=== PATIENT | male | born 1945 | race American Indian/Alaskan Native ===

== ENCOUNTER 2017-12-25 20:04 | Inpatient (IN) | payer MEDICARE, OTHER ==
[2017-12-25] MEDS ORDERED: ONDANSETRON PF 4 MG/2 ML VIAL. (20:17)
[2017-12-25 20:45] LABS: BASO # 0.1 x10^3/uL (0.0-0.2); BASO % 1 % (0-3); EOS % 0 % (0-3); HEMATOCRIT 43.4 % (39.0-53.0); HEMOGLOBIN 15.1 g/dL (13.0-17.5); LYMPH # 1.1 x10^3/uL (1.0-4.8); LYMPH % 5 % (24-48); MEAN CORPUSCULAR HEMOGLOBIN 30 pg (25-35); MEAN CORPUSCULAR HGB CONC 35 g/dL (31-37); MEAN CORPUSCULAR VOLUME 86 fL (79-100); MONO # 1.4 x10^3/uL (0.0-1.1); MONO % 7 % (0-9); NEUT # 19.4 x10^3uL (1.8-7.7); NEUT % 88 % (31-73); PLATELET COUNT 501 x10^3/uL (140-400); RED BLOOD COUNT 5.08 x10^6/uL (4.30-5.70); RED CELL DISTRIBUTION WIDTH 13.5 % (11.5-14.5); WHITE BLOOD COUNT 22.1 x10^3/uL (4.0-11.0)
[2017-12-25 20:48] LABS: ADD MAN DIFF? YES
[2017-12-25] MEDS: IV NORMAL SALINE 1000ML BAG 1,000 ML IV ×2 (20:57→22:08)
[2017-12-25] MEDS: fentaNYL PF VIAL 100 MCG/2 ML VIAL IV ×4 (20:58→23:51)
[2017-12-25] MEDS: FAMOTIDINE 20 MG/2 ML VIAL IVP (20:58)
[2017-12-25] MEDS: ONDANSETRON PF 4 MG/2 ML VIAL. IV ×2 (20:58→22:43)
[2017-12-25 21:01] LABS: ALBUMIN 3.9 g/dL (3.4-5.0); ALBUMIN/GLOBULIN RATIO 0.7 (1.0-1.7); ALK PHOS 135 U/L (46-116); ALT (SGPT) 73 U/L (16-63); ANION GAP 10 (6-14); AST (SGOT) 64 U/L (15-37); BLOOD UREA NITROGEN 11 mg/dL (8-26); BUN/CREATININE RATIO 9 (6-20); CALCIUM 10.4 mg/dL (8.5-10.1); CARBON DIOXIDE 31 mmol/L (21-32); CHLORIDE 93 mmol/L (98-107); CREATININE 1.2 mg/dL (0.7-1.3); GFR 59.3; GLUCOSE 187 mg/dL (70-99); LIPASE 567 U/L (73-393); SODIUM 134 mmol/L (136-145); TOTAL BILIRUBIN 0.8 mg/dL (0.2-1.0); TOTAL PROTEIN 9.2 g/dL (6.4-8.2)
[2017-12-25 21:05] LABS: POTASSIUM 2.9 mmol/L (3.5-5.1)
[2017-12-25 21:06] LABS: TROPONINI < 0.017 ng/mL (0.000-0.055)
[2017-12-25 21:08] LABS: CKMB INDEX 1.7 % (0-4); CKMB MASS 1.8 ng/mL (0.0-3.6); CREATINE KINASE 105 U/L (39-308)
[2017-12-25 21:09] LABS: % BANDS 2 % (0-9); % LYMPHS 4 % (24-48); % MONOS 6 % (0-10); % SEGS 88 % (35-66); PLT ESTIMATE INCREASED (ADEQUATE)
[2017-12-25] MEDS ORDERED: CONTRAST GIVEN MC (22:15)
[2017-12-25] MEDS ORDERED: IOHEXOL 300 MG/ML 100ML VIAL. IV (22:30)
[2017-12-26 00:04] LABS: LACTIC ACID 2.1 mmol/L (0.4-2.0)
[2017-12-26] MEDS: POTASSIUM CL 40MEQ IN 0.9%NACL 1,000 ML IV (00:55)
[2017-12-26] MEDS ORDERED: ROCURONIUM 50 MG/5 ML VIAL. (01:05)
[2017-12-26] MEDS ORDERED: LIDOCAINE 2% PF Vial for OR 5 ML VIAL. (01:05)
[2017-12-26] MEDS ORDERED: PROPOFOL 20 ML IV (01:05)
[2017-12-26] MEDS ORDERED: SUCCINYLCHOLINE 200 MG/10 ML VIAL. (01:05)
[2017-12-26] MEDS ORDERED: DEXAMETHASONE SOD PHOS 20 MG/5 ML VIAL. (01:05)
[2017-12-26] MEDS ORDERED: fentaNYL PF VIAL 100 MCG/2 ML VIAL ×2 (01:05→03:36)
[2017-12-26] MEDS ORDERED: LIDOCAINE 1% PF 2 ML VIAL. ID (01:15)
[2017-12-26] MEDS ORDERED: ONDANSETRON PF 4 MG/2 ML VIAL. IV ×2 (01:15→04:45)
[2017-12-26] MEDS ORDERED: GLYCOPYRROLATE 1 MG/5 ML VIAL. (02:44)
[2017-12-26] MEDS ORDERED: NEOSTIGMINE METHYLSULFATE 5 MG/5 ML SYRINGE. (02:44)
[2017-12-26] MEDS ORDERED: SEVOFLURANE > 120 MINUTES. IH (03:36)
[2017-12-26] MEDS: IV RINGERS,LACTATED 1000ML 1,000 ML IV (04:26)
[2017-12-26] MEDS: PROCHLORPERAZINE 10 MG/2 ML VIAL. IV ×2 (04:27→04:43)
[2017-12-26] MEDS: fentaNYL PF VIAL 100 MCG/2 ML VIAL IV ×5 (04:28→05:14)
[2017-12-26] MEDS ORDERED: PHENOL ORAL SPRAY 177ML BOTTLE. PO (04:45)
[2017-12-26] MEDS ORDERED: diphenhydrAMINE 50 MG/ML VIAL IV (04:45)
[2017-12-26] MEDS ORDERED: 0.9 % SODIUM CHLORIDE 10 ML DISP.SYRIN. IV (04:45)
[2017-12-26] MEDS ORDERED: PNEUMOCOCCAL VAX SCREEN BY RX. MC (07:45)
[2017-12-26] MEDS ORDERED: INFLUENZA VAX SCREEN BY RX. MC (07:45)
[2017-12-26 08:17] LABS: INFLUENZA A PATIENT NEGATIVE (NEGATIVE); INFLUENZA B PATIENT NEGATIVE (NEGATIVE); OBC FLU VALID
[2017-12-26 08:49] LABS: BILIRUBIN,URINE NEGATIVE (NEG); CLARITY,URINE CLEAR; COLOR,URINE AMBER; GLUCOSE,URINE 100 mg/dL (NEG); NITRITE,URINE NEGATIVE (NEG); PROTEIN,URINE 30 mg/dL (NEG-TRACE)
[2017-12-26] MEDS: FLU VACC QS2017-18 (36MOS+)/PF 0.5 ML SYRINGE. VAX IM (09:00)
[2017-12-26 09:05] LABS: BACTERIA,URINE FEW /HPF (0-FEW); SQUAMOUS EPITHELIAL CELL,UR OCC /LPF
[2017-12-26 09:06] LABS: HYALINE CASTS, URINE FEW /HPF
[2017-12-26] MEDS: BENZOCAINE/MENTHOL LOZENGE. PO (09:28)
[2017-12-26] MEDS: POTASSIUM CL 20MEQ-0.45% NACL 1,000 ML IV (09:28)
[2017-12-26 10:54] LABS: ADD MAN DIFF? NO
[2017-12-26 11:00] LABS: BASO % 0 % (0-3); EOS % 0 % (0-3); HEMATOCRIT 42.9 % (39.0-53.0); HEMOGLOBIN 14.5 g/dL (13.0-17.5); LYMPH # 0.2 x10^3/uL (1.0-4.8); LYMPH % 1 % (24-48); MEAN CORPUSCULAR HEMOGLOBIN 29 pg (25-35); MEAN CORPUSCULAR HGB CONC 34 g/dL (31-37); MEAN CORPUSCULAR VOLUME 86 fL (79-100); MONO # 0.2 x10^3/uL (0.0-1.1); MONO % 1 % (0-9); NEUT # 18.3 x10^3uL (1.8-7.7); NEUT % 97 % (31-73); PLATELET COUNT 388 x10^3/uL (140-400); RED BLOOD COUNT 4.98 x10^6/uL (4.30-5.70); RED CELL DISTRIBUTION WIDTH 13.8 % (11.5-14.5); WHITE BLOOD COUNT 18.7 x10^3/uL (4.0-11.0)
[2017-12-26 11:08] LABS: ANION GAP 12 (6-14); BLOOD UREA NITROGEN 12 mg/dL (8-26); CARBON DIOXIDE 21 mmol/L (21-32); CHLORIDE 102 mmol/L (98-107); CREATININE 0.9 mg/dL (0.7-1.3); GFR 82.7; GLUCOSE 149 mg/dL (70-99); POTASSIUM 3.3 mmol/L (3.5-5.1); SODIUM 135 mmol/L (136-145)
[2017-12-26 11:09] LABS: CALCIUM 8.5 mg/dL (8.5-10.1)
[2017-12-26] MEDS ORDERED: POTASSIUM CHLORIDE 20MEQ 50 ML IV (11:45)
[2017-12-26 11:59] LABS: % BANDS 48 % (0-9); % LYMPHS 1 % (24-48); % METAS 1 % (0-0)
[2017-12-26 12:02] LABS: % MONOS 4 % (0-10); % SEGS 46 % (35-66); PLT ESTIMATE ADEQUATE (ADEQUATE)
[2017-12-26 12:03] LABS: OVALOCYTES FEW
[2017-12-26] MEDS: POTASSIUM CHLORIDE 10 MEQ in IV NORMAL SALINE 100ML 100 ML IV ×2 (12:14→14:54)
[2017-12-26] MEDS ORDERED: DOCUSATE SODIUM 100 MG CAPSULE. PO (13:15)
[2017-12-26 13:56] LABS: LACTIC ACID 2.2 mmol/L (0.4-2.0)
[2017-12-26] MEDS: POTASSIUM CL 20MEQ D5-0.9%NACL 1,000 ML IV ×2 (14:53→22:00)
[2017-12-26] MEDS: KETOROLAC 15 MG/ML VIAL. IV (22:39)
[2017-12-26] MEDS: FAMOTIDINE 20 MG/2 ML VIAL IVP (22:42)
[2017-12-26] MEDS: ENOXAPARIN 40 MG/0.4 ML SYRINGE. SQ (22:43)
[2017-12-27] MEDS: POTASSIUM CL 20MEQ D5-0.9%NACL 1,000 ML IV ×2 (03:16→17:13)
[2017-12-27 06:24] LABS: ADD MAN DIFF? NO
[2017-12-27 06:32] LABS: LACTIC ACID 1.5 mmol/L (0.4-2.0)
[2017-12-27 06:42] LABS: ANION GAP 3 (6-14); BLOOD UREA NITROGEN 21 mg/dL (8-26); CALCIUM 7.8 mg/dL (8.5-10.1); CARBON DIOXIDE 28 mmol/L (21-32); CHLORIDE 106 mmol/L (98-107); CREATININE 0.9 mg/dL (0.7-1.3); GFR 82.7; GLUCOSE 127 mg/dL (70-99); POTASSIUM 4.1 mmol/L (3.5-5.1); SODIUM 137 mmol/L (136-145)
[2017-12-27 06:52] LABS: BASO % 0 % (0-3); EOS % 0 % (0-3); HEMATOCRIT 37.5 % (39.0-53.0); HEMOGLOBIN 12.7 g/dL (13.0-17.5); LYMPH # 0.5 x10^3/uL (1.0-4.8); LYMPH % 3 % (24-48); MEAN CORPUSCULAR HEMOGLOBIN 29 pg (25-35); MEAN CORPUSCULAR HGB CONC 34 g/dL (31-37); MEAN CORPUSCULAR VOLUME 87 fL (79-100); MONO # 0.7 x10^3/uL (0.0-1.1); MONO % 5 % (0-9); NEUT # 14.6 x10^3uL (1.8-7.7); NEUT % 92 % (31-73); PLATELET COUNT 326 x10^3/uL (140-400); RED BLOOD COUNT 4.32 x10^6/uL (4.30-5.70); RED CELL DISTRIBUTION WIDTH 13.7 % (11.5-14.5); WHITE BLOOD COUNT 15.9 x10^3/uL (4.0-11.0)
[2017-12-27] MEDS: ENOXAPARIN 40 MG/0.4 ML SYRINGE. SQ (10:05)
[2017-12-27] MEDS: HYDROmorphone 2 MG/ML VIAL IV ×2 (14:12→21:35)
[2017-12-27] MEDS: LACTOBACILLUS RHAMNOSUS GG 1 CAPSULE. PO ×2 (15:00→21:35)
[2017-12-27] MEDS: ONDANSETRON PF 4 MG/2 ML VIAL. IV ×2 (15:26→22:37)
[2017-12-27] MEDS: KETOROLAC 15 MG/ML VIAL. IV ×2 (17:10→22:35)
[2017-12-27] MEDS: FAMOTIDINE 20 MG/2 ML VIAL IVP (21:35)
[2017-12-28] MEDS: HYDROmorphone 2 MG/ML VIAL IV ×7 (00:35→21:26)
[2017-12-28] MEDS: POTASSIUM CL 20MEQ D5-0.9%NACL 1,000 ML IV ×2 (03:35→13:37)
[2017-12-28] MEDS: LACTOBACILLUS RHAMNOSUS GG 1 CAPSULE. PO ×2 (08:39→19:54)
[2017-12-28] MEDS: ENOXAPARIN 40 MG/0.4 ML SYRINGE. SQ (09:05)
[2017-12-28] MEDS: KETOROLAC 15 MG/ML VIAL. IV ×2 (09:09→16:40)
[2017-12-28] MEDS: ONDANSETRON PF 4 MG/2 ML VIAL. IV ×2 (10:15→16:44)
[2017-12-28] MEDS: FAMOTIDINE 20 MG/2 ML VIAL IVP (21:25)
[2017-12-29] MEDS: POTASSIUM CL 20MEQ D5-0.9%NACL 1,000 ML IV ×3 (00:02→22:59)
[2017-12-29] MEDS: HYDROmorphone 2 MG/ML VIAL IV ×2 (01:25→10:07)
[2017-12-29] MEDS: hydrALAZINE 20 MG/ML VIAL. IVP (03:05)
[2017-12-29 06:02] LABS: ADD MAN DIFF? NO
[2017-12-29 06:15] LABS: BASO % 0 % (0-3); EOS % 0 % (0-3); HEMOGLOBIN 12.4 g/dL (13.0-17.5); LYMPH # 0.5 x10^3/uL (1.0-4.8); LYMPH % 11 % (24-48); MEAN CORPUSCULAR HEMOGLOBIN 29 pg (25-35); MEAN CORPUSCULAR HGB CONC 34 g/dL (31-37); MEAN CORPUSCULAR VOLUME 87 fL (79-100); MONO # 0.5 x10^3/uL (0.0-1.1); MONO % 12 % (0-9); NEUT # 3.5 x10^3uL (1.8-7.7); NEUT % 77 % (31-73); PLATELET COUNT 346 x10^3/uL (140-400); RED BLOOD COUNT 4.27 x10^6/uL (4.30-5.70); RED CELL DISTRIBUTION WIDTH 14.1 % (11.5-14.5); WHITE BLOOD COUNT 4.5 x10^3/uL (4.0-11.0)
[2017-12-29] MEDS: ONDANSETRON PF 4 MG/2 ML VIAL. IV ×2 (06:22→15:12)
[2017-12-29] MEDS: KETOROLAC 15 MG/ML VIAL. IV ×3 (06:23→22:58)
[2017-12-29 06:40] LABS: ALBUMIN 2.3 g/dL (3.4-5.0); ALBUMIN/GLOBULIN RATIO 0.5 (1.0-1.7); ALK PHOS 88 U/L (46-116); ALT (SGPT) 31 U/L (16-63); ANION GAP 10 (6-14); AST (SGOT) 24 U/L (15-37); BLOOD UREA NITROGEN 12 mg/dL (8-26); BUN/CREATININE RATIO 15 (6-20); CALCIUM 8.1 mg/dL (8.5-10.1); CARBON DIOXIDE 23 mmol/L (21-32); CHLORIDE 108 mmol/L (98-107); CREATININE 0.8 mg/dL (0.7-1.3); GFR 94.8; GLUCOSE 114 mg/dL (70-99); POTASSIUM 3.8 mmol/L (3.5-5.1); SODIUM 141 mmol/L (136-145); TOTAL BILIRUBIN 0.9 mg/dL (0.2-1.0); TOTAL PROTEIN 6.5 g/dL (6.4-8.2)
[2017-12-29] MEDS: LACTOBACILLUS RHAMNOSUS GG 1 CAPSULE. PO ×2 (09:00→21:00)
[2017-12-29] MEDS: ENOXAPARIN 40 MG/0.4 ML SYRINGE. SQ (10:01)
[2017-12-29] MEDS: PNEUMOC CONJ VACC 23-VALENT 0.5 ML VIAL. VAX IM (12:16)
[2017-12-29] MEDS: FAMOTIDINE 20 MG/2 ML VIAL IVP (21:07)
[2017-12-30 04:21] LABS: ADD MAN DIFF? NO
[2017-12-30 04:22] LABS: BASO % 0 % (0-3); EOS # 0.1 x10^3/uL (0.0-0.7); EOS % 1 % (0-3); HEMOGLOBIN 11.7 g/dL (13.0-17.5); LYMPH # 0.6 x10^3/uL (1.0-4.8); LYMPH % 10 % (24-48); MEAN CORPUSCULAR HEMOGLOBIN 29 pg (25-35); MEAN CORPUSCULAR HGB CONC 33 g/dL (31-37); MEAN CORPUSCULAR VOLUME 88 fL (79-100); MONO # 0.8 x10^3/uL (0.0-1.1); MONO % 14 % (0-9); NEUT # 4.1 x10^3uL (1.8-7.7); NEUT % 75 % (31-73); PLATELET COUNT 349 x10^3/uL (140-400); RED BLOOD COUNT 3.98 x10^6/uL (4.30-5.70); RED CELL DISTRIBUTION WIDTH 14.2 % (11.5-14.5); WHITE BLOOD COUNT 5.6 x10^3/uL (4.0-11.0)
[2017-12-30 04:46] LABS: ALBUMIN 2.1 g/dL (3.4-5.0); ALBUMIN/GLOBULIN RATIO 0.5 (1.0-1.7); ALK PHOS 98 U/L (46-116); ALT (SGPT) 30 U/L (16-63); ANION GAP 9 (6-14); AST (SGOT) 26 U/L (15-37); BLOOD UREA NITROGEN 15 mg/dL (8-26); BUN/CREATININE RATIO 17 (6-20); CALCIUM 7.6 mg/dL (8.5-10.1); CARBON DIOXIDE 23 mmol/L (21-32); CHLORIDE 111 mmol/L (98-107); CREATININE 0.9 mg/dL (0.7-1.3); GFR 82.7; GLUCOSE 117 mg/dL (70-99); POTASSIUM 3.8 mmol/L (3.5-5.1); SODIUM 143 mmol/L (136-145); TOTAL BILIRUBIN 0.6 mg/dL (0.2-1.0)
[2017-12-30] MEDS: ENOXAPARIN 40 MG/0.4 ML SYRINGE. SQ (09:47)
[2017-12-30] MEDS: KETOROLAC 15 MG/ML VIAL. IV ×2 (09:48→21:16)
[2017-12-30] MEDS: LACTOBACILLUS RHAMNOSUS GG 1 CAPSULE. PO ×2 (09:48→21:16)
[2017-12-30] MEDS: POTASSIUM CL 20MEQ D5-0.9%NACL 1,000 ML IV ×2 (12:27→16:00)
[2017-12-30] MEDS: ACETAMINOPHEN 325 MG TABLET. PO (13:50)
[2017-12-30] MEDS: LIDO:MAALOX:DONNATAL 1:1:1 15 ML SINGLE DOSE SWSW (16:20)
[2017-12-30] MEDS: FAMOTIDINE 20 MG/2 ML VIAL IVP (21:16)
[2017-12-31] MEDS: POTASSIUM CL 20MEQ D5-0.9%NACL 1,000 ML IV ×3 (04:33→20:33)
[2017-12-31] MEDS: KETOROLAC 15 MG/ML VIAL. IV ×3 (04:50→20:32)
[2017-12-31] MEDS: LACTOBACILLUS RHAMNOSUS GG 1 CAPSULE. PO ×2 (08:26→20:32)
[2017-12-31] MEDS: ENOXAPARIN 40 MG/0.4 ML SYRINGE. SQ (08:26)
[2017-12-31] MEDS: HYDROmorphone 2 MG/ML VIAL IV ×2 (08:29→17:38)
[2017-12-31] MEDS: FAMOTIDINE 20 MG/2 ML VIAL IVP (20:32)
[2018-01-01] MEDS: hydrALAZINE 20 MG/ML VIAL. IVP (00:34)
[2018-01-01 05:23] LABS: ADD MAN DIFF? NO
[2018-01-01] MEDS: HYDROcodone/APAP 5/325MG 1 TAB TABLET PO ×3 (05:27→18:03)
[2018-01-01 05:51] LABS: BASO # 0.1 x10^3/uL (0.0-0.2); BASO % 1 % (0-3); EOS # 0.1 x10^3/uL (0.0-0.7); EOS % 1 % (0-3); HEMATOCRIT 38.1 % (39.0-53.0); HEMOGLOBIN 12.9 g/dL (13.0-17.5); LYMPH # 0.8 x10^3/uL (1.0-4.8); LYMPH % 7 % (24-48); MEAN CORPUSCULAR HEMOGLOBIN 29 pg (25-35); MEAN CORPUSCULAR HGB CONC 34 g/dL (31-37); MEAN CORPUSCULAR VOLUME 86 fL (79-100); MONO # 0.6 x10^3/uL (0.0-1.1); MONO % 5 % (0-9); NEUT # 9.5 x10^3uL (1.8-7.7); NEUT % 86 % (31-73); PLATELET COUNT 369 x10^3/uL (140-400); RED BLOOD COUNT 4.43 x10^6/uL (4.30-5.70); RED CELL DISTRIBUTION WIDTH 13.8 % (11.5-14.5)
[2018-01-01 06:02] LABS: ALBUMIN 2.5 g/dL (3.4-5.0); ALBUMIN/GLOBULIN RATIO 0.7 (1.0-1.7); ALK PHOS 128 U/L (46-116); ALT (SGPT) 66 U/L (16-63); ANION GAP 10 (6-14); AST (SGOT) 51 U/L (15-37); BLOOD UREA NITROGEN 2 mg/dL (8-26); BUN/CREATININE RATIO 3 (6-20); CALCIUM 7.7 mg/dL (8.5-10.1); CARBON DIOXIDE 24 mmol/L (21-32); CHLORIDE 105 mmol/L (98-107); CREATININE 0.6 mg/dL (0.7-1.3); GFR 132.1; GLUCOSE 124 mg/dL (70-99); POTASSIUM 3.4 mmol/L (3.5-5.1); SODIUM 139 mmol/L (136-145); TOTAL BILIRUBIN 0.5 mg/dL (0.2-1.0); TOTAL PROTEIN 5.9 g/dL (6.4-8.2)
[2018-01-01] MEDS: POTASSIUM CL 20MEQ D5-0.9%NACL 1,000 ML IV ×2 (08:00→21:04)
[2018-01-01] MEDS: LACTOBACILLUS RHAMNOSUS GG 1 CAPSULE. PO ×2 (09:18→21:06)
[2018-01-01] MEDS: ENOXAPARIN 40 MG/0.4 ML SYRINGE. SQ (09:19)
[2018-01-01] MEDS: CALCIUM CARBONATE 500 MG TAB.CHEW PO ×2 (12:28→18:03)
[2018-01-01] MEDS ORDERED: POTASSIUM CHLORIDE 20MEQ 50 ML IV (15:30)
[2018-01-01] MEDS: POTASSIUM CHLORIDE 40 MEQ in IV 1/2 NORMAL SALINE 500 ML IV (16:55)
[2018-01-01] MEDS: FAMOTIDINE 20 MG/2 ML VIAL IVP (21:06)
[2018-01-02 05:06] LABS: ADD MAN DIFF? NO
[2018-01-02 05:19] LABS: BASO % 1 % (0-3); EOS # 0.1 x10^3/uL (0.0-0.7); EOS % 1 % (0-3); HEMATOCRIT 34.3 % (39.0-53.0); HEMOGLOBIN 11.6 g/dL (13.0-17.5); LYMPH # 0.9 x10^3/uL (1.0-4.8); LYMPH % 10 % (24-48); MEAN CORPUSCULAR HEMOGLOBIN 29 pg (25-35); MEAN CORPUSCULAR HGB CONC 34 g/dL (31-37); MEAN CORPUSCULAR VOLUME 86 fL (79-100); MONO # 0.8 x10^3/uL (0.0-1.1); MONO % 8 % (0-9); NEUT # 7.8 x10^3uL (1.8-7.7); NEUT % 81 % (31-73); PLATELET COUNT 386 x10^3/uL (140-400); RED CELL DISTRIBUTION WIDTH 13.8 % (11.5-14.5); WHITE BLOOD COUNT 9.7 x10^3/uL (4.0-11.0)
[2018-01-02 05:30] LABS: ANION GAP 10 (6-14); BLOOD UREA NITROGEN 4 mg/dL (8-26); CALCIUM 8.4 mg/dL (8.5-10.1); CARBON DIOXIDE 24 mmol/L (21-32); CHLORIDE 105 mmol/L (98-107); CREATININE 0.8 mg/dL (0.7-1.3); GFR 94.8; GLUCOSE 114 mg/dL (70-99); POTASSIUM 3.3 mmol/L (3.5-5.1); SODIUM 139 mmol/L (136-145)
[2018-01-02] MEDS: POTASSIUM CL 20MEQ D5-0.9%NACL 1,000 ML IV ×2 (08:11→12:52)
[2018-01-02] MEDS: LACTOBACILLUS RHAMNOSUS GG 1 CAPSULE. PO ×2 (08:12→21:12)
[2018-01-02] MEDS: ENOXAPARIN 40 MG/0.4 ML SYRINGE. SQ (08:13)
[2018-01-02] MEDS: HYDROcodone/APAP 5/325MG 1 TAB TABLET PO (08:19)
[2018-01-02] MEDS: CALCIUM CARBONATE 500 MG TAB.CHEW PO (08:20)
[2018-01-02] MEDS ORDERED: PNEUMOCOCCAL VAX SCREEN BY RX. MC (12:30)
[2018-01-02] MEDS ORDERED: INFLUENZA VAX SCREEN BY RX. MC (12:30)
[2018-01-02] MEDS: POTASSIUM CHLORIDE 40 MEQ in IV DEXTROSE 5% 1,000 ML IV (12:55)
[2018-01-02] MEDS ORDERED: FLU VACC QS2017-18 (36MOS+)/PF 0.5 ML SYRINGE. VAX IM (14:00)
[2018-01-02 18:13] LABS: C DIFF BY PCR Negative (Negative)
[2018-01-02] MEDS: FAMOTIDINE 20 MG/2 ML VIAL IVP (21:13)
[2018-01-03 05:28] LABS: BASO % 0 % (0-3); EOS # 0.2 x10^3/uL (0.0-0.7); EOS % 1 % (0-3); HEMATOCRIT 34.3 % (39.0-53.0); HEMOGLOBIN 11.7 g/dL (13.0-17.5); LYMPH % 7 % (24-48); MEAN CORPUSCULAR HEMOGLOBIN 29 pg (25-35); MEAN CORPUSCULAR HGB CONC 34 g/dL (31-37); MEAN CORPUSCULAR VOLUME 86 fL (79-100); MONO # 0.8 x10^3/uL (0.0-1.1); MONO % 6 % (0-9); NEUT # 11.5 x10^3uL (1.8-7.7); NEUT % 85 % (31-73); PLATELET COUNT 400 x10^3/uL (140-400); RED BLOOD COUNT 3.99 x10^6/uL (4.30-5.70); RED CELL DISTRIBUTION WIDTH 13.9 % (11.5-14.5); WHITE BLOOD COUNT 13.4 x10^3/uL (4.0-11.0)
[2018-01-03 05:42] LABS: ADD MAN DIFF? YES
[2018-01-03 05:57] LABS: ANION GAP 10 (6-14); BLOOD UREA NITROGEN 7 mg/dL (8-26); CALCIUM 8.3 mg/dL (8.5-10.1); CARBON DIOXIDE 25 mmol/L (21-32); CHLORIDE 101 mmol/L (98-107); CREATININE 0.7 mg/dL (0.7-1.3); GFR 110.5; GLUCOSE 112 mg/dL (70-99); POTASSIUM 3.4 mmol/L (3.5-5.1); SODIUM 136 mmol/L (136-145)
[2018-01-03] MEDS: POTASSIUM CL 20MEQ D5-0.9%NACL 1,000 ML IV ×2 (08:41→20:00)
[2018-01-03] MEDS: POTASSIUM CHLORIDE 20 MEQ TABLET.ER. PO ×2 (08:42→12:54)
[2018-01-03] MEDS: ENOXAPARIN 40 MG/0.4 ML SYRINGE. SQ (08:43)
[2018-01-03] MEDS: LACTOBACILLUS RHAMNOSUS GG 1 CAPSULE. PO ×2 (08:43→20:33)
[2018-01-03] MEDS: HYDROcodone/APAP 5/325MG 1 TAB TABLET PO ×3 (08:52→20:34)
[2018-01-03] MEDS: CALCIUM CARBONATE 500 MG TAB.CHEW PO ×2 (08:52→12:55)
[2018-01-03 10:10] LABS: % BANDS 5 % (0-9); % BASOS 1 % (0-3); % EOS 2 % (0-5); % LYMPHS 6 % (24-48); % MONOS 2 % (0-10); % SEGS 84 % (35-66); ANISOCYTOSIS SLIGHT; PLT ESTIMATE ADEQUATE (ADEQUATE)
[2018-01-03 10:11] LABS: POLYCHROMASIA SLIGHT
[2018-01-03] MEDS: FAMOTIDINE 20 MG/2 ML VIAL IVP (20:33)
[2018-01-04 04:37] LABS: ADD MAN DIFF? NO
[2018-01-04 04:46] LABS: BASO # 0.1 x10^3/uL (0.0-0.2); BASO % 1 % (0-3); EOS # 0.1 x10^3/uL (0.0-0.7); EOS % 1 % (0-3); HEMATOCRIT 35.9 % (39.0-53.0); HEMOGLOBIN 11.9 g/dL (13.0-17.5); LYMPH # 1.3 x10^3/uL (1.0-4.8); LYMPH % 10 % (24-48); MEAN CORPUSCULAR HEMOGLOBIN 29 pg (25-35); MEAN CORPUSCULAR HGB CONC 33 g/dL (31-37); MEAN CORPUSCULAR VOLUME 87 fL (79-100); MONO # 0.8 x10^3/uL (0.0-1.1); MONO % 6 % (0-9); NEUT # 10.8 x10^3uL (1.8-7.7); NEUT % 82 % (31-73); PLATELET COUNT 408 x10^3/uL (140-400); RED BLOOD COUNT 4.12 x10^6/uL (4.30-5.70); WHITE BLOOD COUNT 13.1 x10^3/uL (4.0-11.0)
[2018-01-04 05:26] LABS: ANION GAP 6 (6-14); BLOOD UREA NITROGEN 8 mg/dL (8-26); CARBON DIOXIDE 29 mmol/L (21-32); CHLORIDE 105 mmol/L (98-107); CREATININE 0.9 mg/dL (0.7-1.3); GFR 82.7; GLUCOSE 94 mg/dL (70-99); SODIUM 140 mmol/L (136-145)
[2018-01-04] MEDS: POTASSIUM CHLORIDE 20 MEQ TABLET.ER. PO (07:57)
[2018-01-04] MEDS: LACTOBACILLUS RHAMNOSUS GG 1 CAPSULE. PO (07:57)
[2018-01-04] MEDS: ENOXAPARIN 40 MG/0.4 ML SYRINGE. SQ (07:58)
== END 2018-01-04 16:00 | DRG 853 ==
LOC: 4 NORTH 12-26 01:01 → ER 20:04
PROC: 0DB80ZZ Excision of Small Intestine, Open Approach (ICD-10-PCS; principal; 2017-12-26 00:55)
PROC: 0BQT0ZZ Repair Diaphragm, Open Approach (ICD-10-PCS; 2017-12-26 00:55)
PROC: 0DH63UZ Insertion of Feeding Device into Stomach, Percutaneous Approach (ICD-10-PCS; 2017-12-26 00:55)
DX: A41.9 Sepsis, unspecified organism (principal); J96.91 Respiratory failure, unspecified with hypoxia; K56.50 Intestinal adhesions [bands], unspecified as to partial versus complete obstruction; R65.11 Systemic inflammatory response syndrome (SIRS) of non-infectious origin with acute organ dysfunction; E87.6 Hypokalemia; K44.9 Diaphragmatic hernia without obstruction or gangrene; K52.9 Noninfective gastroenteritis and colitis, unspecified; J02.9 Acute pharyngitis, unspecified; I10 Essential (primary) hypertension; D64.9 Anemia, unspecified; Z88.5 Allergy status to narcotic agent; Z90.49 Acquired absence of other specified parts of digestive tract
CPT/HCPCS: 36415; 71045; 71250; 74018; 74176; 80048; 80053; 81001; 82553; 83605; 83690; 84484; 85007; 85025; 87040; 87324; 87804; 87804-59; 88307; 90732; 93005; 97116-GP; 97162-GP; 97166-GO; 97530-GO; 97530-GP; 97535-GO; J0330; J0360; J0690; J0780; J1100; J1170; J1650; J1885; J1956; J2405; J2704; J2710; J3010; J3480; J3490; J7030; J7120; S0028

== ENCOUNTER 2018-02-12 13:13 | Emergency (ER) | payer MEDICARE, OTHER ==
[2018-02-12] MEDS: predniSONE 10 MG TABLET PO (14:23)
== END 2018-02-12 14:37 | disposition home or self-care (01) ==
LOC: ER 13:13
DX: M54.16 Radiculopathy, lumbar region (principal); M79.651 Pain in right thigh; I10 Essential (primary) hypertension; E78.00 Pure hypercholesterolemia, unspecified; Z88.5 Allergy status to narcotic agent; Z91.041 Radiographic dye allergy status
CPT/HCPCS: 99284; J7512

== ENCOUNTER 2019-02-14 03:05 | Inpatient (IN) | payer MEDICARE, OTHER ==
[~2019-02-14] VITALS: Ht 165.1 cm; Wt 57.3 kg
[2019-02-14] VITALS (23 sets, daily range): BP systolic 106–175; BP diastolic 63–106
[~2019-02-14 03:05] MED LIST: PRED20TA PO
[2019-02-14 03:36] LABS: BASE EXCESS ABG -3 mmol/L (-3-3); HCO3 ABG 21 mmol/L (21-28); PCO2 ABG 34 mmHg (35-46); PO2 ABG 84 mmHg (65-108); SAT O2 ABG 95 % (92-99)
[2019-02-14 03:36] LABS: BASO # 0.1 x10^3/uL (0.0-0.2); BASO % 1 % (0-3); EOS # 0.2 x10^3/uL (0.0-0.7); EOS % 3 % (0-3); HEMATOCRIT 40.9 % (39.0-53.0); HEMOGLOBIN 13.5 g/dL (13.0-17.5); LYMPH # 1.7 x10^3/uL (1.0-4.8); LYMPH % 25 % (24-48); MEAN CORPUSCULAR HEMOGLOBIN 30 pg (25-35); MEAN CORPUSCULAR HGB CONC 33 g/dL (31-37); MEAN CORPUSCULAR VOLUME 90 fL (79-100); MONO # 0.8 x10^3/uL (0.0-1.1); MONO % 11 % (0-9); NEUT # 4.1 x10^3uL (1.8-7.7); NEUT % 61 % (31-73); PLATELET COUNT 254 x10^3/uL (140-400); RED BLOOD COUNT 4.53 x10^6/uL (4.30-5.70); RED CELL DISTRIBUTION WIDTH 14.5 % (11.5-14.5); WHITE BLOOD COUNT 6.8 x10^3/uL (4.0-11.0)
[2019-02-14 03:57] LABS: CALCIUM 8.1 mg/dL (8.5-10.1); CREATININE 0.9 mg/dL (0.7-1.3); GFR 82.5; POTASSIUM 3.6 mmol/L (3.5-5.1)
[2019-02-14 04:03] LABS: ALBUMIN 3.2 g/dL (3.4-5.0); ALBUMIN/GLOBULIN RATIO 0.9 (1.0-1.7); TOTAL BILIRUBIN 0.5 mg/dL (0.2-1.0); TOTAL PROTEIN 6.8 g/dL (6.4-8.2)
--- NOTE | 2019-02-14 04:20 | RAD ---
EXAM: CT Head without IV contrast CLINICAL HISTORY: Altered mental status COMPARISON: None. TECHNIQUE: Routine CT of the head without contrast. Soft tissues and bone windows were reviewed. PQRS compliance statement - One or more of the following individualized dose reduction techniques were utilized for this study: 1. Automated exposure control 2. Adjustment of the mA and/or kV according to patient size 3. Use of iterative reconstruction technique FINDINGS: Nearly anechoic right extra-axial collection overlies the right frontal and parietal region measuring up to approximately 5 mm in thickness. This is favored to represent a subdural hygroma or old subdural hematoma. No definite high density component to suggest associated hemorrhage. Otherwise, no evidence of hemorrhage, mass or extra-axial fluid collection. Pereira-white differentiation is maintained with no evidence of edema. There are non-specific foci of hypodensity in the periventricular and subcortical white matter of the cerebral hemispheres may represent changes of chronic small vessel disease. There is no mass effect or shift of the intracranial structures. The ventricles and cerebral sulci are prominent for the patients stated age consistent with generalized cerebral volume loss. The cerebellum and brainstem are unremarkable. The calvarium demonstrates no evidence of fracture or focal lesion. There is normal aeration of the visualized paranasal sinuses and mastoid air cells. The visualized portions of the orbits are normal. IMPRESSION: 1. Mild right frontoparietal extra-axial collection, favored to represent subdural hygroma or other chronic collection. 2. Otherwise no evidence for acute intracranial process. Electronically signed by: Octavio Veronica MD (02/14/2019 4:16 AM) [facility]
[2019-02-14 04:23] LABS: FIO2 ABG 28
--- NOTE | 2019-02-14 04:33 | RAD ---
EXAM: CT Abdomen and Pelvis without IV contrast CLINICAL HISTORY: ABDOMINAL PAIN. COMPARISON: 12/25/2017 TECHNIQUE: Helical CT of the abdomen and pelvis without intravenous contrast. Axial, coronal and sagittal reformatted images were generated. PQRS compliance statement - One or more of the following individualized dose reduction techniques were utilized for this study: 1. Automated exposure control 2. Adjustment of the mA and/or kV according to patient size 3. Use of iterative reconstruction technique FINDINGS: Lack of intravenous contrast limits evaluation of solid organs, vasculature, and lymph nodes. Lower chest: Dependent opacities in the lower lobes and lingula likely scarring/atelectasis. Large hiatal hernia. Coronary artery calcifications are seen. Abdomen and Pelvis: No focal liver lesion. Accounting for postcholecystectomy change, no biliary ductal dilatation. Spleen is unremarkable. Pancreas is unremarkable. Adrenal glands are normal. Moderate distention of the bladder can be correlated for possible voluntary or involuntary causes of urinary retention. No focal renal lesion. No hydronephrosis or hydroureter. Moderate colonic stool content is seen. Colonic diverticulosis without evidence for acute diverticulitis. No abdominal or pelvic ascites. No abdominal or pelvic lymphadenopathy. Bones: Diffusely decreased bone mineral density. Multilevel degenerative changes of the spine are seen. Mild height loss of the L1 vertebral body new compared to 12/25/2018. IMPRESSION: 1. Colonic diverticulosis without evidence for acute diverticulitis. 2. No evidence for bowel obstruction. Large hiatal hernia. 3. Bladder is markedly distended, this can be correlated for possible voluntary or involuntary causes of urinary retention. 4. Mild height loss of the L1 vertebral body is new compared to 12/25/2017 although remains age-indeterminate. Electronically signed by: Octavio Veronica MD (02/14/2019 4:30 AM) [facility]
[2019-02-14 05:12] LABS: BILIRUBIN,URINE NEGATIVE (NEG); CLARITY,URINE CLEAR; COLOR,URINE YELLOW; NITRITE,URINE NEGATIVE (NEG); PH,URINE 5.5; PROTEIN,URINE NEGATIVE (NEG-TRACE); UROBILINOGEN,URINE 0.2 mg/dL (0.2 mg/dL)
--- NOTE | 2019-02-14 05:16 | PHYS DOC ---
Past Medical History Past Medical History: Anemia, High Cholesterol, Hypertension, Other Additional Past Medical Histor: ULCER Past Surgical History: Other Additional Past Surgical Histo: LOBECTOMY Alcohol Use: None Drug Use: None Adult General Chief Complaint Chief Complaint: SHORTNESS OF BREATH HPI HPI 73-year-old male presents with a multitude of complaints. The primary historian is the patient's daughter who lives in [place]. Apparently the patient lives alone in assisted complex called [facility]. Over the course of the last several weeks D assistant property manager has noticed that he seems very forgetful and sometimes will disappear for a couple of days. The daughter states this is very new over the course of the last couple of weeks. The daughter also states the patient has complained of some off-and-on chest pain along with progressive shortness of breath. The patient does state that he seems more short of breath when he lies flat. Patient also complains of severe abdominal pain. The daughter states when she was driving him here tonight they will go over a bump and he would complain of pain. He has not had any fever chills or sweats. He denies any nausea vomiting or diarrhea. He's had no melena or hematemesis.[] Review of Systems Review of Systems Constitutional: Denies fever or chills [] Eyes: Denies change in visual acuity, redness, or eye pain [] HENT: Denies nasal congestion or sore throat [] Respiratory: Denies cough or shortness of breath [] Cardiovascular: No additional information not addressed in HPI [] GI: Denies abdominal pain, nausea, vomiting, bloody stools or diarrhea [] : Denies dysuria or hematuria [] Musculoskeletal: Denies back pain or joint pain [] Integument: Denies rash or skin lesions [] Neurologic: Denies headache, focal weakness or sensory changes [] Endocrine: Denies polyuria or polydipsia [] All other systems were reviewed and found to be within normal limits, except as documented in this note. Allergies Allergies Allergies Coded Allergies Type Severity Reaction Last Updated Verified iodine Allergy Severe Anaphylaxis 12/26/17 Yes morphine Allergy Intermediate 12/26/17 Yes Physical Exam Physical Exam Constitutional: Frail, elderly in [id number] distress but nontoxic. [] HENT: Normocephalic, atraumatic, bilateral external ears normal, oropharynx moist, no oral exudates, nose normal, poor dentition. [] Eyes: PERRLA, EOMI, conjunctiva normal, no discharge. [] Neck: Normal range of motion, no tenderness, supple, no stridor. [] Cardiovascular:Heart rate regular rhythm, no murmur [] Lungs & Thorax: Bilateral breath sounds clear to auscultation [] Abdomen: Abdomen is soft with lower abdominal tenderness to palp involuntary guarding no rebound. [] Skin: Warm, dry, no erythema, no rash. [] Back: No tenderness, no CVA tenderness. [] Extremities: No tenderness, no cyanosis, no clubbing, ROM intact, no edema. [] Neurologic: Alert to person, normal motor function, normal sensory function, no focal deficits noted. [] Psychologic: Confused flat affect[] Current Patient Data Vital Signs Vital Signs Date Time Temp Pulse Resp B/P (MAP) Pulse Ox O2 Delivery O2 Flow Rate FiO2 02/14/19 03:15 98.2 75 20 126/73 (90) 88 Room Air 98.2 Lab Values Laboratory Tests Test 02/14/19 03:25 02/14/19 03:37 02/14/19 05:00 White Blood Count 6.8 x10^3/uL (4.0-11.0) Red Blood Count 4.53 x10^6/uL (4.30-5.70) Hemoglobin 13.5 g/dL (13.0-17.5) Hematocrit 40.9 % (39.0-53.0) Mean Corpuscular Volume 90 fL (79-100) Mean Corpuscular Hemoglobin 30 pg (25-35) Mean Corpuscular Hemoglobin Concent 33 g/dL (31-37) Red Cell Distribution Width 14.5 % (11.5-14.5) Platelet Count 254 x10^3/uL (140-400) Neutrophils (%) (Auto) 61 % (31-73) Lymphocytes (%) (Auto) 25 % (24-48) Monocytes (%) (Auto) 11 % (0-9) H Eosinophils (%) (Auto) 3 % (0-3) Basophils (%) (Auto) 1 % (0-3) Neutrophils # (Auto) 4.1 x10^3uL (1.8-7.7) Lymphocytes # (Auto) 1.7 x10^3/uL (1.0-4.8) Monocytes # (Auto) 0.8 x10^3/uL (0.0-1.1) Eosinophils # (Auto) 0.2 x10^3/uL (0.0-0.7) Basophils # (Auto) 0.1 x10^3/uL (0.0-0.2) Sodium Level 136 mmol/L (136-145) Potassium Level 3.6 mmol/L (3.5-5.1) Chloride Level 99 mmol/L (98-107) Carbon Dioxide Level 22 mmol/L (21-32) Anion Gap 15 (6-14) H Blood Urea Nitrogen 7 mg/dL (8-26) L Creatinine 0.9 mg/dL (0.7-1.3) Estimated GFR (Cockcroft-Gault) 82.5 BUN/Creatinine Ratio 8 (6-20) Glucose Level 114 mg/dL (70-99) H Calcium Level 8.1 mg/dL (8.5-10.1) L Total Bilirubin 0.5 mg/dL (0.2-1.0) Aspartate Amino Transferase (AST) 20 U/L (15-37) Alanine Aminotransferase (ALT) 17 U/L (16-63) Alkaline Phosphatase 87 U/L (46-116) Troponin I Quantitative 0.022 ng/mL (0.000-0.055) VK-Ylh-K-Type Natriuretic Peptide 1512 pg/mL (0-124) H Total Protein 6.8 g/dL (6.4-8.2) Albumin 3.2 g/dL (3.4-5.0) L Albumin/Globulin Ratio 0.9 (1.0-1.7) L Lipase 274 U/L (73-393) O2 Saturation 95 % (92-99) Arterial Blood pH 7.41 (7.35-7.45) Arterial Blood pCO2 at Patient Temp 34 mmHg (35-46) L Arterial Blood pO2 at Patient Temp 84 mmHg (65-108) Arterial Blood HCO3 21 mmol/L (21-28) Arterial Blood Base Excess -3 mmol/L (-3-3) FiO2 28 Urine Collection Type Unknown Urine Color Yellow Urine Clarity Clear Urine pH 5.5 Urine Specific Austin <=1.005 Urine Protein Negative mg/dL (NEG-TRACE) Urine Glucose (UA) Negative mg/dL (NEG) Urine Ketones (Stick) Negative mg/dL (NEG) Urine Blood Negative (NEG) Urine Nitrite Negative (NEG) Urine Bilirubin Negative (NEG) Urine Urobilinogen Dipstick 0.2 mg/dL (0.2 mg/dL) Urine Leukocyte Esterase Negative (NEG) Urine RBC Occ /HPF (0-2) Urine WBC Occ /HPF (0-4) Urine Squamous Epithelial Cells Occ /LPF Urine Bacteria 0 /HPF (0-FEW) Laboratory Tests 02/14/19 03:25 Laboratory Tests 02/14/19 03:25 EKG EKG [] Interpretation Time: EKG: Normal sinus rhythm rate of 77 left ventricular hypertrophy no obvious ischemic ST-T changes right bundle-branch block Radiology/Procedures Radiology/Procedures []PROCEDURE: CT HEAD WO CONTRAST EXAM: CT Head without IV contrast CLINICAL HISTORY: Altered mental status COMPARISON: None. TECHNIQUE: Routine CT of the head without contrast. Soft tissues and bone windows were reviewed. PQRS compliance statement - One or more of the following individualized dose reduction techniques were utilized for this study: 1. Automated exposure control 2. Adjustment of the mA and/or kV according to patient size 3. Use of iterative reconstruction technique FINDINGS: Nearly anechoic right extra-axial collection overlies the right frontal and parietal region measuring up to approximately 5 mm in thickness. This is favored to represent a subdural hygroma or old subdural hematoma. No definite high density component to suggest associated hemorrhage. Otherwise, no evidence of hemorrhage, mass or extra-axial fluid collection. Pereira-white differentiation is maintained with no evidence of edema. There are non-specific foci of hypodensity in the periventricular and subcortical white matter of the cerebral hemispheres may represent changes of chronic small vessel disease. There is no mass effect or shift of the intracranial structures. The ventricles and cerebral sulci are prominent for the patients stated age consistent with generalized cerebral volume loss. The cerebellum and brainstem are unremarkable. The calvarium demonstrates no evidence of fracture or focal lesion. There is normal aeration of the visualized paranasal sinuses and mastoid air cells. The visualized portions of the orbits are normal. IMPRESSION: 1. Mild right frontoparietal extra-axial collection, favored to represent subdural hygroma or other chronic collection. 2. Otherwise no evidence for acute intracranial process. Impressions: PROCEDURE: CT ABDOMEN PELVIS WO CONTRAST EXAM: CT Abdomen and Pelvis without IV contrast CLINICAL HISTORY: ABDOMINAL PAIN. COMPARISON: 12/25/2017 TECHNIQUE: Helical CT of the abdomen and pelvis without intravenous contrast. Axial, coronal and sagittal reformatted images were generated. PQRS compliance statement - One or more of the following individualized dose reduction techniques were utilized for this study: 1. Automated exposure control 2. Adjustment of the mA and/or kV according to patient size 3. Use of iterative reconstruction technique FINDINGS: Lack of intravenous contrast limits evaluation of solid organs, vasculature, and lymph nodes. Lower chest: Dependent opacities in the lower lobes and lingula likely scarring/atelectasis. Large hiatal hernia. Coronary artery calcifications are seen. Abdomen and Pelvis: No focal liver lesion. Accounting for postcholecystectomy change, no biliary ductal dilatation. Spleen is unremarkable. Pancreas is unremarkable. Adrenal glands are normal. Moderate distention of the bladder can be correlated for possible voluntary or involuntary causes of urinary retention. No focal renal lesion. No hydronephrosis or hydroureter. Moderate colonic stool content is seen. Colonic diverticulosis without evidence for acute diverticulitis. No abdominal or pelvic ascites. No abdominal or pelvic lymphadenopathy. Bones: Diffusely decreased bone mineral density. Multilevel degenerative changes of the spine are seen. Mild height loss of the L1 vertebral body new compared to 12/25/2018. IMPRESSION: 1. Colonic diverticulosis without evidence for acute diverticulitis. 2. No evidence for bowel obstruction. Large hiatal hernia. 3. Bladder is markedly distended, this can be correlated for possible voluntary or involuntary causes of urinary retention. 4. Mild height loss of the L1 vertebral body is new compared to 12/25/2017 although remains age-indeterminate. Course & Med Decision Making Course & Med Decision Making Pertinent Labs and Imaging studies reviewed. (See chart for details) [ED course: Evaluation reveals a 73-year-old male with acute urinary retention. We did talk to the patient about placing a Proctor catheter however ultimately he was able to produce around 500 mL of clear yellow urine. Patient did have a slightly elevated troponin as well as a BNP of 1500. I suspect he has some underlying cardiac disease. We will admit the patient and have cardiology see him.] Dragon Disclaimer Dragon Disclaimer This electronic medical record was generated, in whole or in part, using a voice recognition dictation system. Departure Departure Impression: Primary Impression: Chest pain Additional Impressions: Congestive heart failure Urinary retention Disposition: 09 ADMITTED INPATIENT Admitting Physician: Joey Mcelroy Condition: GUARDED Referrals: NO PCP (PCP) Problem Qualifiers Primary Impression: Chest pain Chest pain type: unspecified Qualified Codes: R07.9 - Chest pain, unspecified Additional Impressions: Congestive heart failure Heart failure type: unspecified Heart failure chronicity: acute Qualified Codes: I50.9 - Heart failure, unspecified RICCO GRAYSON DO Feb 14, 2019 05:16
[2019-02-14 05:21] LABS: BACTERIA,URINE 0 /HPF (0-FEW); RBC,URINE OCC /HPF (0-2); SQUAMOUS EPITHELIAL CELL,UR OCC /LPF; WBC,URINE OCC /HPF (0-4)
[2019-02-14] MEDS ORDERED: ACETAMINOPHEN 325 MG TABLET. PO PRN (05:30)
[2019-02-14] MEDS ORDERED: fentaNYL PF VIAL 100 MCG/2 ML VIAL IV PRN (05:30)
[2019-02-14] MEDS ORDERED: ONDANSETRON PF 4 MG/2 ML VIAL. IV PRN ×2 (05:30→08:00)
[2019-02-14] MEDS ORDERED: FUROSEMIDE 40 MG/4 ML VIAL. IVP ONE (05:30)
[2019-02-14] MEDS ORDERED: NITROGLYCERIN SUBLINGUAL 0.4 MG BOTTLE OF 25. SL PRN (05:30)
--- NOTE | 2019-02-14 06:30 | NUR ---
Pt was admitted to the unit from ER with c/o SOB x several weeks according to pt and daughter brando at bedside. Pt lives by himself at the [facility] in [place], [place], daughter lives in [place]. Pt used to live with daughter here in , but when daughter moved to [place] january, pt resided alone. Pt is alert to self, year, and states being in the hospital, but unclear which hospital. Pt is on RA, JAY on telemetry, LE 2+ edema with mild weakness. Pt left both sets of dentures at home, states taking no home medications, and daughter was worried about pts mentation. Daughter stating, "he seems to be more confused lately, normally he is not like this." Daughter came to in hopes of moving pt to [place] with her. She states wanting to pt to get better before making the move. Both pt and daughter poor historians, H&P completed, no meds to reconcile, call light within reach, bed in low/locked position. Will continue to monitor for status changes.
--- NOTE | 2019-02-14 06:45 | EKG ---
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
--- NOTE | 2019-02-14 08:12 | RAD ---
Chest radiograph 02/14/2019 3:34 AM INDICATION: Altered mental status COMPARISON: December 25, 2017 TECHNIQUE: Portable upright frontal view of the chest is provided. FINDINGS: The cardiomediastinal silhouette is enlarged, stable. Is persistent elevation of the left hemidiaphragm. There is colonic interposition along the right hemidiaphragm. No definite free intraperitoneal air is visualized. Bandlike densities in the infrahilar region bilaterally may reflect subsegmental atelectasis versus infiltrate. No significant pulmonary vascular congestion or pneumothorax. IMPRESSION: Increased prominence of infrahilar bandlike densities which may represent subsegmental atelectasis versus infiltrates. Electronically signed by: Ivonne Pope MD (02/14/2019 8:10 AM) [id number]
[2019-02-14] MEDS ORDERED: POTASSIUM CHLORIDE 20 MEQ TABLET.ER. PO ONE (08:15)
[2019-02-14 08:30] LABS: CHOLESTEROL/HDL RATIO 2.4
--- NOTE | 2019-02-14 08:57 | EKG ---
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
[2019-02-14] MEDS ORDERED: dilTIAZem IV PUSH 25 MG/5 ML VIAL IVP ONE (09:00)
--- NOTE | 2019-02-14 09:05 | PDOC1 ---
History and Physical Date of Admission Date of Admission DATE: 02/14/19 TIME: 08:58 Identification/Chief Complaint Chief Complaint forgetful Source Source: Caregiver, Chart review History of Present Illness History of Present Illness 83-year-old male who is living in a senior apartment, brought in by concerned daughter who actually lives in [place]. Because of forgetfulness. 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 Patient actually denies/not complaining of anything. But in ROS admits to difficulty initiating a urine or weak void. Attempted straight catheter at ER only drained 500 mL but then again patient might be dry?. Now called by RN, heart rate 150s. Stat EKG done, A. fib/flutter rhythm, I have personally reviewed. No home meds to reconcile. BNP 1500 in ER and chest x-ray maybe modest CHF changes. Patient did report orthopnea and SOA with intermittent chest pains for the past few weeks at rest. No identifiable precipitating or alleviating factors. Potassium 3.6 after Lasix and had urine output 1.5 L. Now complaining of leg cramps. Will order a stat potassium, replace potassium now. Cardizem 10 push for the A. fib new onset A. fib flutter. Cards aware of the status Past Medical History Cardiovascular: No pertinent hx Pulmonary: No pertinent hx GI: No pertinent hx ENT: No pertinent hx Renal/: No pertinent hx Endocrine: No pertinent hx Dermatology: No pertinent hx Past Surgical History Past Surgical History: Appendectomy, Cholecystectomy, Other Family History Family History: No Significant Social History Smoke: No ALCOHOL: none Drugs: None Current Problem List Problem List Problems Medical Problems: (1) Chest pain Status: Acute (2) Congestive heart failure Status: Acute (3) Urinary retention Status: Acute Current Medications Current Medications Current Medications Ondansetron HCl (Zofran) 4 mg PRN Q8HRS PRN IV NAUSEA/VOMITING; Start 02/14/19 at 05:30; Stop 02/14/19 at 07:58; Status DC Fentanyl Citrate (Fentanyl 2ml Vial) 50 mcg PRN Q4HRS PRN IV PAIN Last administered on 02/14/19at 08:13; Start 02/14/19 at 05:30; Stop 02/15/19 at 05:29 Acetaminophen (Tylenol) 650 mg PRN Q4HRS PRN PO FEVER; Start 02/14/19 at 05:30; Stop 02/15/19 at 05:29 Nitroglycerin (Nitrostat) 0.4 mg PRN Q5MIN PRN SL CHEST PAIN; Start 02/14/19 at 05:30; Stop 02/15/19 at 05:29 Furosemide (Lasix) 40 mg 1X ONCE IVP Last administered on 02/14/19at 05:41; Start 02/14/19 at 05:30; Stop 02/14/19 at 05:31; Status DC Ondansetron HCl (Zofran) 4 mg PRN Q6HRS PRN IV NAUSEA/VOMITING; Start 02/14/19 at 08:00 Potassium Chloride (Klor-Con) 40 meq 1X ONCE PO Last administered on 02/14/19at 08:40; Start 02/14/19 at 08:15; Stop 02/14/19 at 08:16; Status DC Diltiazem HCl (Cardizem Iv Push) 10 mg 1X ONCE IVP Last administered on at 08:52; Start 02/14/19 at 09:00; Stop 02/14/19 at 09:01 Active Scripts Active Prednisone 20 Mg Tablet 40 Mg PO DAILY 5 Days Allergies Allergies: Coded Allergies: iodine (Verified Allergy, Severe, Anaphylaxis, 12/26/17) morphine (Verified Allergy, Intermediate, 12/26/17) ROS Review of System Weak urine, weak stream, difficulty initiating avoid Physical Exam General: No acute distress HEENT: Atraumatic, PERRLA, EOMI Lungs: Normal air movement Heart: S1S2, no thrills, no rubs, no gallops, no murmurs, irregularly irregular Cardiovascular: S1, S2 Rectal Exam: not examined PELVIC: Nml ext genitalia Extremities: No clubbing, No cyanosis, No edema, Normal pulses, No tenderness/ swelling Skin: No rashes, No breakdown, No significant lesion Neuro: Normal gait, Normal speech, Strength at 5/5 X4 ext, Normal tone, Sensation intact, Cranial nerves 3-12 NL, Reflexes 2+ Psych/Mental Status: Mental status NL, Mood NL Vitals Vitals Vital Signs Date Time Temp Pulse Resp B/P (MAP) Pulse Ox O2 Delivery O2 Flow Rate FiO2 02/14/19 08:52 140 148/108 02/14/19 06:36 97.4 18 96 Room Air 97.4 02/14/19 05:04 2.0 Labs Labs Laboratory Tests Test 02/14/19 03:25 02/14/19 03:37 02/14/19 05:00 White Blood Count 6.8 x10^3/uL (4.0-11.0) Red Blood Count 4.53 x10^6/uL (4.30-5.70) Hemoglobin 13.5 g/dL (13.0-17.5) Hematocrit 40.9 % (39.0-53.0) Mean Corpuscular Volume 90 fL (79-100) Mean Corpuscular Hemoglobin 30 pg (25-35) Mean Corpuscular Hemoglobin Concent 33 g/dL (31-37) Red Cell Distribution Width 14.5 % (11.5-14.5) Platelet Count 254 x10^3/uL (140-400) Neutrophils (%) (Auto) 61 % (31-73) Lymphocytes (%) (Auto) 25 % (24-48) Monocytes (%) (Auto) 11 % (0-9) Eosinophils (%) (Auto) 3 % (0-3) Basophils (%) (Auto) 1 % (0-3) Neutrophils # (Auto) 4.1 x10^3uL (1.8-7.7) Lymphocytes # (Auto) 1.7 x10^3/uL (1.0-4.8) Monocytes # (Auto) 0.8 x10^3/uL (0.0-1.1) Eosinophils # (Auto) 0.2 x10^3/uL (0.0-0.7) Basophils # (Auto) 0.1 x10^3/uL (0.0-0.2) Sodium Level 136 mmol/L (136-145) Potassium Level 3.6 mmol/L (3.5-5.1) Chloride Level 99 mmol/L (98-107) Carbon Dioxide Level 22 mmol/L (21-32) Anion Gap 15 (6-14) Blood Urea Nitrogen 7 mg/dL (8-26) Creatinine 0.9 mg/dL (0.7-1.3) Estimated GFR (Cockcroft-Gault) 82.5 BUN/Creatinine Ratio 8 (6-20) Glucose Level 114 mg/dL (70-99) Calcium Level 8.1 mg/dL (8.5-10.1) Total Bilirubin 0.5 mg/dL (0.2-1.0) Aspartate Amino Transf (AST/SGOT) 20 U/L (15-37) Alanine Aminotransferase (ALT/SGPT) 17 U/L (16-63) Alkaline Phosphatase 87 U/L (46-116) Troponin I Quantitative 0.022 ng/mL (0.000-0.055) IX-Jej-P-Type Natriuretic Peptide 1512 pg/mL (0-124) Total Protein 6.8 g/dL (6.4-8.2) Albumin 3.2 g/dL (3.4-5.0) Albumin/Globulin Ratio 0.9 (1.0-1.7) Triglycerides Level 55 mg/dL (0-150) Cholesterol Level 112 mg/dL (0-200) LDL Cholesterol, Calculated 55 mg/dL (0-100) VLDL Cholesterol, Calculated 11 mg/dL (0-40) Non-HDL Cholesterol Calculated 66 mg/dL (0-129) HDL Cholesterol 46 mg/dL (40-60) Cholesterol/HDL Ratio 2.4 Lipase 274 U/L (73-393) Thyroid Stimulating Hormone (TSH) 2.800 uIU/mL (0.358-3.74) O2 Saturation 95 % (92-99) Arterial Blood pH 7.41 (7.35-7.45) Arterial Blood pCO2 at Patient Temp 34 mmHg (35-46) Arterial Blood pO2 at Patient Temp 84 mmHg (65-108) Arterial Blood HCO3 21 mmol/L (21-28) Arterial Blood Base Excess -3 mmol/L (-3-3) FiO2 28 Urine Collection Type Unknown Urine Color Yellow Urine Clarity Clear Urine pH 5.5 Urine Specific [place] <=1.005 Urine Protein Negative mg/dL (NEG-TRACE) Urine Glucose (UA) Negative mg/dL (NEG) Urine Ketones (Stick) Negative mg/dL (NEG) Urine Blood Negative (NEG) Urine Nitrite Negative (NEG) Urine Bilirubin Negative (NEG) Urine Urobilinogen Dipstick 0.2 mg/dL (0.2 mg/dL) Urine Leukocyte Esterase Negative (NEG) Urine RBC Occ /HPF (0-2) Urine WBC Occ /HPF (0-4) Urine Squamous Epithelial Cells Occ /LPF Urine Bacteria 0 /HPF (0-FEW) Laboratory Tests Test 02/14/19 03:25 02/14/19 03:37 02/14/19 05:00 White Blood Count 6.8 x10^3/uL (4.0-11.0) Red Blood Count 4.53 x10^6/uL (4.30-5.70) Hemoglobin 13.5 g/dL (13.0-17.5) Hematocrit 40.9 % (39.0-53.0) Mean Corpuscular Volume 90 fL (79-100) Mean Corpuscular Hemoglobin 30 pg (25-35) Mean Corpuscular Hemoglobin Concent 33 g/dL (31-37) Red Cell Distribution Width 14.5 % (11.5-14.5) Platelet Count 254 x10^3/uL (140-400) Neutrophils (%) (Auto) 61 % (31-73) Lymphocytes (%) (Auto) 25 % (24-48) Monocytes (%) (Auto) 11 % (0-9) Eosinophils (%) (Auto) 3 % (0-3) Basophils (%) (Auto) 1 % (0-3) Neutrophils # (Auto) 4.1 x10^3uL (1.8-7.7) Lymphocytes # (Auto) 1.7 x10^3/uL (1.0-4.8) Monocytes # (Auto) 0.8 x10^3/uL (0.0-1.1) Eosinophils # (Auto) 0.2 x10^3/uL (0.0-0.7) Basophils # (Auto) 0.1 x10^3/uL (0.0-0.2) Sodium Level 136 mmol/L (136-145) Potassium Level 3.6 mmol/L (3.5-5.1) Chloride Level 99 mmol/L (98-107) Carbon Dioxide Level 22 mmol/L (21-32) Anion Gap 15 (6-14) Blood Urea Nitrogen 7 mg/dL (8-26) Creatinine 0.9 mg/dL (0.7-1.3) Estimated GFR (Cockcroft-Gault) 82.5 BUN/Creatinine Ratio 8 (6-20) Glucose Level 114 mg/dL (70-99) Calcium Level 8.1 mg/dL (8.5-10.1) Total Bilirubin 0.5 mg/dL (0.2-1.0) Aspartate Amino Transf (AST/SGOT) 20 U/L (15-37) Alanine Aminotransferase (ALT/SGPT) 17 U/L (16-63) Alkaline Phosphatase 87 U/L (46-116) Troponin I Quantitative 0.022 ng/mL (0.000-0.055) AW-Nol-J-Type Natriuretic Peptide 1512 pg/mL (0-124) Total Protein 6.8 g/dL (6.4-8.2) Albumin 3.2 g/dL (3.4-5.0) Albumin/Globulin Ratio 0.9 (1.0-1.7) Triglycerides Level 55 mg/dL (0-150) Cholesterol Level 112 mg/dL (0-200) LDL Cholesterol, Calculated 55 mg/dL (0-100) VLDL Cholesterol, Calculated 11 mg/dL (0-40) Non-HDL Cholesterol Calculated 66 mg/dL (0-129) HDL Cholesterol 46 mg/dL (40-60) Cholesterol/HDL Ratio 2.4 Lipase 274 U/L (73-393) Thyroid Stimulating Hormone (TSH) 2.800 uIU/mL (0.358-3.74) O2 Saturation 95 % (92-99) Arterial Blood pH 7.41 (7.35-7.45) Arterial Blood pCO2 at Patient Temp 34 mmHg (35-46) Arterial Blood pO2 at Patient Temp 84 mmHg (65-108) Arterial Blood HCO3 21 mmol/L (21-28) Arterial Blood Base Excess -3 mmol/L (-3-3) FiO2 28 Urine Collection Type Unknown Urine Color Yellow Urine Clarity Clear Urine pH 5.5 Urine Specific [place] <=1.005 Urine Protein Negative mg/dL (NEG-TRACE) Urine Glucose (UA) Negative mg/dL (NEG) Urine Ketones (Stick) Negative mg/dL (NEG) Urine Blood Negative (NEG) Urine Nitrite Negative (NEG) Urine Bilirubin Negative (NEG) Urine Urobilinogen Dipstick 0.2 mg/dL (0.2 mg/dL) Urine Leukocyte Esterase Negative (NEG) Urine RBC Occ /HPF (0-2) Urine WBC Occ /HPF (0-4) Urine Squamous Epithelial Cells Occ /LPF Urine Bacteria 0 /HPF (0-FEW) VTE Prophylaxis Ordered VTE Prophylaxis Devices: Yes VTE Pharmacological Prophylaxi: Yes Assessment/Plan Assessment/Plan New Onset A. fib flutter in RVR - CHADS 3 Possible beginning dementia or versus moderate cognitive impairment Generalized weakness-lives in a senior apartment Possible hypokalemia HIGH likelihood urinary retention PLAN: admit 2 [place] Cardizem push now Depending on that we'll see if need more or drip etc. Cards consulted Dementia work up, TSH, esr, b12 Will need an echo Stat potassium now - leg cramps - 1.5 L Output after lasix Replace potassium 401-depending onset potassium we'll see if we need more PT OT bladder scan protocol FULL CODE dw CVC VILMA BARRETT MD Feb 14, 2019 09:05
[2019-02-14 09:21] LABS: CALCIUM 8.6 mg/dL (8.5-10.1); CREATININE 0.7 mg/dL (0.7-1.3); GFR 110.2; POTASSIUM 3.8 mmol/L (3.5-5.1)
--- NOTE | 2019-02-14 09:22 | PDOC2 ---
CARDIAC CONSULT DATE OF CONSULT Date of Consult DATE: 02/14/19 TIME: 09:07 REASON FOR CONSULT Reason for Consult: Chest pain REFERRING PHYSICIAN Referring Physician: Misty SOURCE Source: Chart review, Patient HISTORY OF PRESENT ILLNESS HISTORY OF PRESENT ILLNESS This is a an 83 yo male admitted for complains of SOA and decreasing mental state. He lives in [place] and daughter is wanting him to move to for closer supervision. He has been noted with forgetfulness and noted with SOA. No complains of dizziness, passing out. He does not take any routine medications. No hx of falls so far, CVA, CAD and has had stress test in [place] 2 yrs ago. No hx of arrhythmias. He has epigastric tenderness and pain with nausea currently. No fever, chills and diarrhea. He does have hx of HTN but does not take any meds. Denies any routine MSAID therapy. PAST MEDICAL HISTORY Cardiovascular: No pertinent hx Pulmonary: Asthma GI: Diverticulosis, GERD, Other (hiatal hernia) Heme/Onc: Anemia NOS PAST SURGICAL HISTORY Past Surgical History: Appendectomy, Cholecystectomy, Other (12/2017 SBO/HH with adhesion lysis, ex lap, bowel recetion and hernia reduction, G tube placement; RUL lobectomy) FAMILY HISTORY Family History: Family History Unknown SOCIAL HISTORY Smoke: No ALCOHOL: other (1 pint q3 days) Drugs: None Lives: Alone CURRENT MEDICATIONS CURRENT MEDICATIONS Current Medications Medications (Trade) Dose Ordered Sig/[place] Route PRN Reason Start Time Stop Time Status Last Admin Dose Admin Fentanyl Citrate (Fentanyl 2ml Vial) 50 mcg PRN Q4HRS PRN IV PAIN 02/14/19 05:30 02/15/19 05:29 02/14/19 08:13 Furosemide (Lasix) 40 mg 1X ONCE IVP 02/14/19 05:30 02/14/19 05:31 DC 02/14/19 05:41 Potassium Chloride (Klor-Con) 40 meq 1X ONCE PO 02/14/19 08:15 02/14/19 08:16 DC 02/14/19 08:40 Diltiazem HCl (Cardizem Iv Push) 10 mg 1X ONCE IVP 02/14/19 09:00 02/14/19 09:01 DC 02/14/19 08:52 ALLERGIES ALLERGIES: Coded Allergies: iodine (Verified Allergy, Severe, Anaphylaxis, 12/26/17) morphine (Verified Allergy, Intermediate, 12/26/17) ROS Review of System 14 point ROS evaluated with pertinent positives noted per HPI PHYSICAL EXAM General: Alert, Oriented X3, Cooperative, No acute distress HEENT: Atraumatic, Mucous membr. moist/pink Lungs: Clear to auscultation, Normal air movement Heart: Other (AFIB) Abdomen: Soft Extremities: No cyanosis, Other (2+ bilateral LE pitting edema) Skin: No breakdown, No significant lesion Neuro: Normal speech, Sensation intact Psych/Mental Status: Mental status NL, Mood NL MUSCULOSKELETAL: Osteoarthritic changes both hands VITALS VITALS Vital Signs Date Time Temp Pulse Resp B/P (MAP) Pulse Ox O2 Delivery O2 Flow Rate FiO2 02/14/19 08:52 140 148/108 02/14/19 06:36 97.4 18 96 Room Air 97.4 02/14/19 05:04 2.0 LABS Lab: Laboratory Tests Test 02/14/19 03:25 02/14/19 03:37 02/14/19 05:00 White Blood Count 6.8 x10^3/uL (4.0-11.0) Red Blood Count 4.53 x10^6/uL (4.30-5.70) Hemoglobin 13.5 g/dL (13.0-17.5) Hematocrit 40.9 % (39.0-53.0) Mean Corpuscular Volume 90 fL (79-100) Mean Corpuscular Hemoglobin 30 pg (25-35) Mean Corpuscular Hemoglobin Concent 33 g/dL (31-37) Red Cell Distribution Width 14.5 % (11.5-14.5) Platelet Count 254 x10^3/uL (140-400) Neutrophils (%) (Auto) 61 % (31-73) Lymphocytes (%) (Auto) 25 % (24-48) Monocytes (%) (Auto) 11 % (0-9) Eosinophils (%) (Auto) 3 % (0-3) Basophils (%) (Auto) 1 % (0-3) Neutrophils # (Auto) 4.1 x10^3uL (1.8-7.7) Lymphocytes # (Auto) 1.7 x10^3/uL (1.0-4.8) Monocytes # (Auto) 0.8 x10^3/uL (0.0-1.1) Eosinophils # (Auto) 0.2 x10^3/uL (0.0-0.7) Basophils # (Auto) 0.1 x10^3/uL (0.0-0.2) Sodium Level 136 mmol/L (136-145) Potassium Level 3.6 mmol/L (3.5-5.1) Chloride Level 99 mmol/L (98-107) Carbon Dioxide Level 22 mmol/L (21-32) Anion Gap 15 (6-14) Blood Urea Nitrogen 7 mg/dL (8-26) Creatinine 0.9 mg/dL (0.7-1.3) Estimated GFR (Cockcroft-Gault) 82.5 BUN/Creatinine Ratio 8 (6-20) Glucose Level 114 mg/dL (70-99) Calcium Level 8.1 mg/dL (8.5-10.1) Total Bilirubin 0.5 mg/dL (0.2-1.0) Aspartate Amino Transf (AST/SGOT) 20 U/L (15-37) Alanine Aminotransferase (ALT/SGPT) 17 U/L (16-63) Alkaline Phosphatase 87 U/L (46-116) Troponin I Quantitative 0.022 ng/mL (0.000-0.055) PM-Vuo-G-Type Natriuretic Peptide 1512 pg/mL (0-124) Total Protein 6.8 g/dL (6.4-8.2) Albumin 3.2 g/dL (3.4-5.0) Albumin/Globulin Ratio 0.9 (1.0-1.7) Triglycerides Level 55 mg/dL (0-150) Cholesterol Level 112 mg/dL (0-200) LDL Cholesterol, Calculated 55 mg/dL (0-100) VLDL Cholesterol, Calculated 11 mg/dL (0-40) Non-HDL Cholesterol Calculated 66 mg/dL (0-129) HDL Cholesterol 46 mg/dL (40-60) Cholesterol/HDL Ratio 2.4 Lipase 274 U/L (73-393) Thyroid Stimulating Hormone (TSH) 2.800 uIU/mL (0.358-3.74) O2 Saturation 95 % (92-99) Arterial Blood pH 7.41 (7.35-7.45) Arterial Blood pCO2 at Patient Temp 34 mmHg (35-46) Arterial Blood pO2 at Patient Temp 84 mmHg (65-108) Arterial Blood HCO3 21 mmol/L (21-28) Arterial Blood Base Excess -3 mmol/L (-3-3) FiO2 28 Urine Collection Type Unknown Urine Color Yellow Urine Clarity Clear Urine pH 5.5 Urine Specific [place] <=1.005 Urine Protein Negative mg/dL (NEG-TRACE) Urine Glucose (UA) Negative mg/dL (NEG) Urine Ketones (Stick) Negative mg/dL (NEG) Urine Blood Negative (NEG) Urine Nitrite Negative (NEG) Urine Bilirubin Negative (NEG) Urine Urobilinogen Dipstick 0.2 mg/dL (0.2 mg/dL) Urine Leukocyte Esterase Negative (NEG) Urine RBC Occ /HPF (0-2) Urine WBC Occ /HPF (0-4) Urine Squamous Epithelial Cells Occ /LPF Urine Bacteria 0 /HPF (0-FEW) ASSESSMENT/PLAN ASSESSMENT/PLAN 1. AFIB RVR: new finding 2. Dyspnea with mild acute diastolic CHF: likely from paroxysmal episode as above. 3. Abnormal head CT: ?Subdural hygroma 4. Possible dementia 5. LE cramping 6. Atypical CP: more Epigastric pain with nausea 7. ETOH use: 1 piont of vodka every 3 days Recommendations 1. Will need clarification with his balance status, dementia to note fall risk and also in regards to abnormal CT prior to start of any anticoagulation. OT/PT eval and treat 2. Will place on ASA for now for stroke prevention till above is clarified. 3. Bolus cardizem and start drip. Received IV lasix in ED. Dig x1. Recheck BMP and check Mg. 4. TSH. TTE. 5. Will discuss treatment plan with daughter when available. JORGE CESAR APRN Feb 14, 2019 09:22
[2019-02-14] MEDS ORDERED: DIGOXIN IV 500 MCG/2 ML AMPUL. IV ONE (09:45)
[2019-02-14] MEDS: dilTIAZem INJ 125 MG in IV DEXTROSE 5% 100ML 100 ML IV PRN ×2 (09:48→21:08)
--- NOTE | 2019-02-14 12:04 | NUR ---
Approximately 0800 entered pt's room to do assessment. Pt was complaining of leg cramps. As this RN began to assess pt, noticed heart rhythm irregular and HR in 140s. Pt appeared to be tachypneic but no complaints of chest pain. Attempted to have pt do Valsalva maneuvers with no change. Paged and spoke to primary physician regarding current status and complaints of leg cramping. Received orders for stat BMP and ECG. ECG showed pt to be in Afib RVR. Primary physician arrived on unit and gave orders for 10 mg cardizem bolus. After 30 minutes, HR slowed down slightly upon which time cardiology [employer] ATTORNEY arrived on unit. Received orders for cardizem continuous infusion and one time digoxin x1. Approximately 1000, Pt's HR now sinus and regular. Will continue to monitor.
[2019-02-14] MEDS ORDERED: hydrALAZINE 20 MG/ML VIAL. IVP PRN (13:15)
--- NOTE | 2019-02-14 13:56 | NUR ---
SS following for discharge planning. SS reviewed pt chart. Pt is from home and is currently on room air. No discharge needs noted at this time. SS will continue to follow for discharge planning.
--- NOTE | 2019-02-14 16:58 | PDOC2 ---
NEUROLOGY CONSULT Date of Admission Date of Admission DATE: 02/14/19 TIME: 16:39 Reason for Consult Reason for Consult: IMPRESSION: Metabolic encephalopathy. Right frontal and parietal hygroma, chronic fluid collection. Anticoagulant issues from Cardiology. Chest pain. SOB. AFib with RVR, new findings? CHF. Dysarthria, chronic? Forgetfulness, cognitive impairment. HTN. HLD. Alcohol use/abuse. Peripheral neuropathy in LE likely. RECOMMENDATIONS/PLAN: EEG. Lab: see orders. Patient was unable to provide Hx whether he had SDH in the past. If he had, no anticoagulant is recommended at this time. Need information form his family. Treat medical and cardiac diseases. HISTORY OF PRESENT ILLNESS This is a an 83-y-old male patient with above medical diseases was admitted due to complains of SOB, chest pain and decreasing mental status. He lives in [place] and daughter is wanting him to move to for closer supervision. He has been noted with forgetfulness and noted with SOB. He has HTN but does not take any medication. Neurology was requested for consultation due to his abnormal HCT and possible anticoagulant issues. PAST MEDICAL HISTORY Cardiovascular: No pertinent hx Pulmonary: Asthma GI: Diverticulosis, GERD, Other (hiatal hernia) Heme/Onc: Anemia NOS PAST SURGICAL HISTORY Appendectomy, Cholecystectomy, Other (12/2017 SBO/HH with adhesion lysis, ex lap , bowel resection and hernia reduction, G tube placement; RUL lobectomy). FAMILY HISTORY Unknown ALLERGIES Coded Allergies: iodine (Verified Allergy, Severe, Anaphylaxis, 12/26/17) morphine (Verified Allergy, Intermediate, 12/26/17) SOCIAL HISTORY Smoke: No ALCOHOL: 1 pint of Vodka q3 days for many years. Drugs: None Lives: Alone MEDICATIONS: Refer to [facility] REVIEW OF SYSTEMS: Constitutional: No cachexia. Head: No traumatic brain or head injury. Skin: No edema, or rash. Ear: No infection. Eyes: No vision loss or color blindness. Nose: No bleeding or purulent discharges. Hearing: Hearing decrease. Neck: No injury. Cardiac: Chest pain, HTN, HLD. Pulmonary: SOB. GI: No GI ulcer, GI bleeding. Urinary/genital: UTI. Endocrinologic: No cousin face, craniofacial dysmorphism, polydactyly. Skeletomuscular: Generalized weakness. Neurological: see HP. Psychiatric: Alcohol use/abuse. Otherwise, not [id number] review of systems. PHYSICAL EXAMINATION: General appearance is in subacute distress. HEENT: Normocephalic and nontraumatic. Eyes, nose, ears, and throat are unremarkable. Neck is supple. No lymphadenopathy. No crepitus. Cardiovascular: S1, S2, seemed irregular rate and rhythm. Pulmonary: Clear to auscultation bilaterally. Abdomen: Bowel sounds are positive. Extremities: No rash, lesions, or edema. No restriction of range of motion NEUROLOGICAL EXAMINATION: Awake. Partially oriented to time, knew place and person. PERRL. EOMI. CN: no focal findings. Muscle tone: within normal. Muscle strength: 4+ DTR: 2 Plantar reflex: Neutral response bilaterally Gait: not examined in bed. Sensory exam: no abnormal findings. No cerebellar signs elicited. F-T-N test fine. Current Medications Current Medications Current Medications Ondansetron HCl (Zofran) 4 mg PRN Q8HRS PRN IV NAUSEA/VOMITING; Start 02/14/19 at 05:30; Stop 02/14/19 at 07:58; Status DC Fentanyl Citrate (Fentanyl 2ml Vial) 50 mcg PRN Q4HRS PRN IV PAIN Last administered on 02/14/19at 08:13; Start 02/14/19 at 05:30; Stop 02/15/19 at 05:29 Acetaminophen (Tylenol) 650 mg PRN Q4HRS PRN PO FEVER; Start 02/14/19 at 05:30; Stop 02/15/19 at 05:29 Nitroglycerin (Nitrostat) 0.4 mg PRN Q5MIN PRN SL CHEST PAIN; Start 02/14/19 at 05:30; Stop 02/15/19 at 05:29 Furosemide (Lasix) 40 mg 1X ONCE IVP Last administered on 02/14/19at 05:41; Start 02/14/19 at 05:30; Stop 02/14/19 at 05:31; Status DC Ondansetron HCl (Zofran) 4 mg PRN Q6HRS PRN IV NAUSEA/VOMITING; Start 02/14/19 at 08:00 Potassium Chloride (Klor-Con) 40 meq 1X ONCE PO Last administered on 02/14/19at 08:40; Start 02/14/19 at 08:15; Stop 02/14/19 at 08:16; Status DC Diltiazem HCl (Cardizem Iv Push) 10 mg 1X ONCE IVP Last administered on at 08:52; Start 02/14/19 at 09:00; Stop 02/14/19 at 09:01; Status DC Enoxaparin Sodium (Lovenox 60mg Syringe) 60 mg 1X ONCE SQ ; Start 02/14/19 at 09 :30; Stop 02/14/19 at 09:31; Status DC Diltiazem HCl 125 mg/Dextrose 125 ml @ 5 mls/hr CONT PRN IV SEE I/O RECORD Last administered on 02/14/19at 09:48; Start 02/14/19 at 09:30 Digoxin (Lanoxin) 500 mcg 1X ONCE IV Last administered on 02/14/19at 09:45; Start 02/14/19 at 09:45; Stop 02/14/19 at 09:46; Status DC Hydralazine HCl (Apresoline Inj) 10 mg PRN Q4HRS PRN IVP ELEVATED BP, SEE COMMENTS Last administered on 02/14/19at 13:17; Start 02/14/19 at 13:15 Active Scripts Active Prednisone 20 Mg Tablet 40 Mg PO DAILY 5 Days Allergies Allergies: Allergies Coded Allergies Type Severity Reaction Last Updated Verified iodine Allergy Severe Anaphylaxis 12/26/17 Yes morphine Allergy Intermediate 12/26/17 Yes ROS Review of System The patient denies any associated fevers, chills, headache, ear pain, rhinorrhea , sore throat, stiff neck, productive cough, chest pain, shortness of breath, back or flank pain, abdominal pain, nausea, vomiting, diarrhea, constipation, dysuria, rash, numbness, weakness, tingling, incontinence, difficulty ambulating, or diaphoresis. Physical Exam Physical Exam General: Well developed, well nourished, no acute distress, well appearing HEENT: Pupils equally round and reactive to light, EOMI, no discharge, normal conjunctiva Neck: Supple, no nuchal rigidity, no JVD, trachea midline, no tenderness Cardiac: RRR, no murmurs, no gallops, no rubs Chest/Lungs: CTAB, no wheeze, no rhonchi, no crackles Abdomen: soft, non-distended, no guarding, no peritoneal signs, non-tender Back: No tenderness Extremities: no edema, pulses intact, non-tender,capillary refill <3 sec bilateral upper and lower extremities, Neuro: Alert and oriented x 4, no focal deficits, normal speech Vitals Vitals: Vital Signs Date Time Temp Pulse Resp B/P (MAP) Pulse Ox O2 Delivery O2 Flow Rate FiO2 02/14/19 16:00 80 153/91 (111) 02/14/19 14:00 97.5 18 94 Room Air 97.5 02/14/19 08:00 2.0 Labs Labs Laboratory Tests Test 02/14/19 03:25 02/14/19 03:37 02/14/19 05:00 02/14/19 08:20 White Blood Count 6.8 x10^3/uL (4.0-11.0) Red Blood Count 4.53 x10^6/uL (4.30-5.70) Hemoglobin 13.5 g/dL (13.0-17.5) Hematocrit 40.9 % (39.0-53.0) Mean Corpuscular Volume 90 fL (79-100) Mean Corpuscular Hemoglobin 30 pg (25-35) Mean Corpuscular Hemoglobin Concent 33 g/dL (31-37) Red Cell Distribution Width 14.5 % (11.5-14.5) Platelet Count 254 x10^3/uL (140-400) Neutrophils (%) (Auto) 61 % (31-73) Lymphocytes (%) (Auto) 25 % (24-48) Monocytes (%) (Auto) 11 % (0-9) Eosinophils (%) (Auto) 3 % (0-3) Basophils (%) (Auto) 1 % (0-3) Neutrophils # (Auto) 4.1 x10^3uL (1.8-7.7) Lymphocytes # (Auto) 1.7 x10^3/uL (1.0-4.8) Monocytes # (Auto) 0.8 x10^3/uL (0.0-1.1) Eosinophils # (Auto) 0.2 x10^3/uL (0.0-0.7) Basophils # (Auto) 0.1 x10^3/uL (0.0-0.2) Sodium Level 136 mmol/L (136-145) 137 mmol/L (136-145) Potassium Level 3.6 mmol/L (3.5-5.1) 3.8 mmol/L (3.5-5.1) Chloride Level 99 mmol/L (98-107) 100 mmol/L (98-107) Carbon Dioxide Level 22 mmol/L (21-32) 21 mmol/L (21-32) Anion Gap 15 (6-14) 16 (6-14) Blood Urea Nitrogen 7 mg/dL (8-26) 7 mg/dL (8-26) Creatinine 0.9 mg/dL (0.7-1.3) 0.7 mg/dL (0.7-1.3) Estimated GFR (Cockcroft-Gault) 82.5 110.2 BUN/Creatinine Ratio 8 (6-20) Glucose Level 114 mg/dL (70-99) 117 mg/dL (70-99) Calcium Level 8.1 mg/dL (8.5-10.1) 8.6 mg/dL (8.5-10.1) Total Bilirubin 0.5 mg/dL (0.2-1.0) Aspartate Amino Transf (AST/SGOT) 20 U/L (15-37) Alanine Aminotransferase (ALT/SGPT) 17 U/L (16-63) Alkaline Phosphatase 87 U/L (46-116) Troponin I Quantitative 0.022 ng/mL (0.000-0.055) < 0.017 ng/mL (0.000-0.055) OM-Sci-Y-Type Natriuretic Peptide 1512 pg/mL (0-124) Total Protein 6.8 g/dL (6.4-8.2) Albumin 3.2 g/dL (3.4-5.0) Albumin/Globulin Ratio 0.9 (1.0-1.7) Triglycerides Level 55 mg/dL (0-150) Cholesterol Level 112 mg/dL (0-200) LDL Cholesterol, Calculated 55 mg/dL (0-100) VLDL Cholesterol, Calculated 11 mg/dL (0-40) Non-HDL Cholesterol Calculated 66 mg/dL (0-129) HDL Cholesterol 46 mg/dL (40-60) Cholesterol/HDL Ratio 2.4 Lipase 274 U/L (73-393) Thyroid Stimulating Hormone (TSH) 2.800 uIU/mL (0.358-3.74) O2 Saturation 95 % (92-99) Arterial Blood pH 7.41 (7.35-7.45) Arterial Blood pCO2 at Patient Temp 34 mmHg (35-46) Arterial Blood pO2 at Patient Temp 84 mmHg (65-108) Arterial Blood HCO3 21 mmol/L (21-28) Arterial Blood Base Excess -3 mmol/L (-3-3) FiO2 28 Urine Collection Type Unknown Urine Color Yellow Urine Clarity Clear Urine pH 5.5 Urine Specific [place] <=1.005 Urine Protein Negative mg/dL (NEG-TRACE) Urine Glucose (UA) Negative mg/dL (NEG) Urine Ketones (Stick) Negative mg/dL (NEG) Urine Blood Negative (NEG) Urine Nitrite Negative (NEG) Urine Bilirubin Negative (NEG) Urine Urobilinogen Dipstick 0.2 mg/dL (0.2 mg/dL) Urine Leukocyte Esterase Negative (NEG) Urine RBC Occ /HPF (0-2) Urine WBC Occ /HPF (0-4) Urine Squamous Epithelial Cells Occ /LPF Urine Bacteria 0 /HPF (0-FEW) Erythrocyte Sedimentation Rate 5 (0-15) Magnesium Level 2.0 mg/dL (1.8-2.4) Vitamin B12 Level 390 pg/mL (247-911) Test 02/14/19 11:00 Troponin I Quantitative < 0.017 ng/mL (0.000-0.055) Laboratory Tests Test 02/14/19 03:25 02/14/19 03:37 02/14/19 05:00 02/14/19 08:20 White Blood Count 6.8 x10^3/uL (4.0-11.0) Red Blood Count 4.53 x10^6/uL (4.30-5.70) Hemoglobin 13.5 g/dL (13.0-17.5) Hematocrit 40.9 % (39.0-53.0) Mean Corpuscular Volume 90 fL (79-100) Mean Corpuscular Hemoglobin 30 pg (25-35) Mean Corpuscular Hemoglobin Concent 33 g/dL (31-37) Red Cell Distribution Width 14.5 % (11.5-14.5) Platelet Count 254 x10^3/uL (140-400) Neutrophils (%) (Auto) 61 % (31-73) Lymphocytes (%) (Auto) 25 % (24-48) Monocytes (%) (Auto) 11 % (0-9) Eosinophils (%) (Auto) 3 % (0-3) Basophils (%) (Auto) 1 % (0-3) Neutrophils # (Auto) 4.1 x10^3uL (1.8-7.7) Lymphocytes # (Auto) 1.7 x10^3/uL (1.0-4.8) Monocytes # (Auto) 0.8 x10^3/uL (0.0-1.1) Eosinophils # (Auto) 0.2 x10^3/uL (0.0-0.7) Basophils # (Auto) 0.1 x10^3/uL (0.0-0.2) Sodium Level 136 mmol/L (136-145) 137 mmol/L (136-145) Potassium Level 3.6 mmol/L (3.5-5.1) 3.8 mmol/L (3.5-5.1) Chloride Level 99 mmol/L (98-107) 100 mmol/L (98-107) Carbon Dioxide Level 22 mmol/L (21-32) 21 mmol/L (21-32) Anion Gap 15 (6-14) 16 (6-14) Blood Urea Nitrogen 7 mg/dL (8-26) 7 mg/dL (8-26) Creatinine 0.9 mg/dL (0.7-1.3) 0.7 mg/dL (0.7-1.3) Estimated GFR (Cockcroft-Gault) 82.5 110.2 BUN/Creatinine Ratio 8 (6-20) Glucose Level 114 mg/dL (70-99) 117 mg/dL (70-99) Calcium Level 8.1 mg/dL (8.5-10.1) 8.6 mg/dL (8.5-10.1) Total Bilirubin 0.5 mg/dL (0.2-1.0) Aspartate Amino Transf (AST/SGOT) 20 U/L (15-37) Alanine Aminotransferase (ALT/SGPT) 17 U/L (16-63) Alkaline Phosphatase 87 U/L (46-116) Troponin I Quantitative 0.022 ng/mL (0.000-0.055) < 0.017 ng/mL (0.000-0.055) HD-Yiq-X-Type Natriuretic Peptide 1512 pg/mL (0-124) Total Protein 6.8 g/dL (6.4-8.2) Albumin 3.2 g/dL (3.4-5.0) Albumin/Globulin Ratio 0.9 (1.0-1.7) Triglycerides Level 55 mg/dL (0-150) Cholesterol Level 112 mg/dL (0-200) LDL Cholesterol, Calculated 55 mg/dL (0-100) VLDL Cholesterol, Calculated 11 mg/dL (0-40) Non-HDL Cholesterol Calculated 66 mg/dL (0-129) HDL Cholesterol 46 mg/dL (40-60) Cholesterol/HDL Ratio 2.4 Lipase 274 U/L (73-393) Thyroid Stimulating Hormone (TSH) 2.800 uIU/mL (0.358-3.74) O2 Saturation 95 % (92-99) Arterial Blood pH 7.41 (7.35-7.45) Arterial Blood pCO2 at Patient Temp 34 mmHg (35-46) Arterial Blood pO2 at Patient Temp 84 mmHg (65-108) Arterial Blood HCO3 21 mmol/L (21-28) Arterial Blood Base Excess -3 mmol/L (-3-3) FiO2 28 Urine Collection Type Unknown Urine Color Yellow Urine Clarity Clear Urine pH 5.5 Urine Specific [place] <=1.005 Urine Protein Negative mg/dL (NEG-TRACE) Urine Glucose (UA) Negative mg/dL (NEG) Urine Ketones (Stick) Negative mg/dL (NEG) Urine Blood Negative (NEG) Urine Nitrite Negative (NEG) Urine Bilirubin Negative (NEG) Urine Urobilinogen Dipstick 0.2 mg/dL (0.2 mg/dL) Urine Leukocyte Esterase Negative (NEG) Urine RBC Occ /HPF (0-2) Urine WBC Occ /HPF (0-4) Urine Squamous Epithelial Cells Occ /LPF Urine Bacteria 0 /HPF (0-FEW) Erythrocyte Sedimentation Rate 5 (0-15) Magnesium Level 2.0 mg/dL (1.8-2.4) Vitamin B12 Level 390 pg/mL (247-911) Test 02/14/19 11:00 Troponin I Quantitative < 0.017 ng/mL (0.000-0.055) JENNY ARMSTRONG MD Feb 14, 2019 16:57
--- NOTE | 2019-02-14 17:32 | NUR ---
Entered Pt's room to give tylenol for pain in legs at approximately 1720. Pt received dinner and noticed HR on monitor was fast and irregular again. Cardizem drip increased to 15 mg/hr. Will continue to monitor.
[2019-02-14] MEDS: CYCLOBENZAPRINE 10 MG TABLET. PO PRN (20:58)
--- NOTE | 2019-02-14 23:31 | EEG ---
DATE OF SERVICE: 02/14/2019 EEG: #[id number]. OBJECTIVE: This is a 73-year-old male patient with history of confusional episodes and forgetfulness for 2 days. EEG was requested to help rule out subclinical seizure. METHODS: Twenty electrodes were applied according to the international 10-20 electrode placement system. EKG monitoring, hyperventilation, intermittent photic stimulation, monopolar and bipolar montages are routinely utilized. The record was obtained on a digital system with video monitoring. FINDINGS: 1. Background: The patient was recorded in the awake, drowsy, and sleep states. The overall background amplitude is 10-30 microvolts. A posterior dominant rhythm of 8-10 Hz is observed. 2. Abnormalities: No specific epileptiform discharge or electrographic seizure is seen. No focal or diffuse slowing. 3. Activation: Hyperventilation was performed only for 2 minutes. Intermittent photic stimulation was performed with photic driving. No specific epileptiform discharge or electrographic seizure induced by hyperventilation or intermittent photic stimulation. IMPRESSION: This EEG is a normal study for the awake, drowsy, and sleep states. No focal, lateralizing, specific epileptiform discharge or electrographic seizure is seen. JENNY ARMSTRONG MD DR: ISABEL/tala JOB#: [id number] / [id number] GINNY
[2019-02-15] VITALS (13 sets, daily range): BP systolic 106–131; BP diastolic 65–80
[2019-02-15] MEDS: dilTIAZem INJ 125 MG in IV DEXTROSE 5% 100ML 100 ML IV PRN (03:44)
[2019-02-15] MEDS: ASPIRIN ENTERIC COATED 81 MG TABLET.DR. PO SCH (08:53)
--- NOTE | 2019-02-15 09:13 | CARD ---
MR#: [id number] Date of Study: 02/15/2019 Ordering Physician: JORGE CESAR, Referring Physician: MARCIO GARCIA Tech: Amanda Esparza MARCK APPROVED REPORT EXAM: Two-dimensional and M-mode echocardiogram with Doppler and color Doppler. Other Information Quality : AverageHR: 73bpm Rhythm : Other INDICATION Chest Pain 2D DIMENSIONS RVDd2.9 (2.9-3.5cm)Left Atrium(2D)4.3 (1.6-4.0cm) IVSd1.5 (0.7-1.1cm)Aortic Root(2D)3.9 (2.0-3.7cm) LVDd3.9 (3.9-5.9cm)LVOT Diameter2.6 (1.8-2.4cm) PWd1.1 (0.7-1.1cm)LVDs2.3 (2.5-4.0cm) FS (%) 41.5 %SV47.6 ml LVEF(%)73.1 (>50%) M-Mode DIMENSIONS Left Atrium(MM)4.08 (2.5-4.0cm)Aortic Root3.50 (2.2-3.7cm) Aortic Valve AoV Peak Jacques.151.0cm/sAoV VTI18.7cm AO Peak GR.9.1mmHgLVOT VTI 13.88cm AO Mean GR.3mmHg Mitral Valve MV E Zjjsvgmf32.2cm/sMV DECEL [id number] MV A Ystrwtgj62.8cm/sE/A Ratio4.5 MV A Szynodyw03mh Pulmonary Valve PV Peak Jnnidksp10.0cm/s Tricuspid Valve TR P. Hjzfpmyq764fx/sRAP [id number] TR Peak Gr.35peBsZXGD88jdHe LEFT VENTRICLE The left ventricle is normal size. Proximal septal thickening is noted. The left ventricular systolic function is normal. The Ejection Fraction is 65-70%. There is normal LV segmental wall motion. RIGHT VENTRICLE The right ventricle is normal size. There is normal right ventricular wall thickness. The right ventr icular systolic function is normal. ATRIA The left atrium is mildly dilated. The right atrium size is normal. The interatrial septum is intact with no evidence for an atrial septal defect or patent foramen ovale as noted on 2-D or Doppler imagi ng. AORTIC VALVE The aortic valve is trileaflet. The aortic valve is mildly calcified. Doppler and Color Flow revealed no significant aortic regurgitation. There is no significant aortic valvular stenosis. MITRAL VALVE The mitral valve is thickened but opens well. There is no evidence of mitral valve prolapse. There is no mitral valve stenosis. Doppler and Color-flow revealed trace to mild mitral regurgitation. TRICUSPID VALVE The tricuspid valve is normal in structure and function. Doppler and Color Flow revealed trace tricus pid regurgitation. The PA pressure was estimated at 30 mmHg. There is no tricuspid valve prolapse or vegetation. There is no tricuspid valve stenosis. PULMONIC VALVE The pulmonic valve is not well visualized. GREAT VESSELS The aortic root is mildly enlarged. The ascending aorta is normal in size. The IVC is normal in size and collapses >50% with inspiration. PERICARDIAL EFFUSION There is no evidence of significant pericardial effusion. Critical Notification Critical Value: No <Conclusion> The left ventricular systolic function is normal. The Ejection Fraction is 65-70%. There is normal LV segmental wall motion. Trace to mild mitral regurgitation. Trace tricuspid regurgitation. The PA pressure was estimated at 30 mmHg. There is no evidence of significant pericardial effusion. Signed by : Silvino Benoit, Electronically Approved : 02/15/2019 09:13:22
--- NOTE | 2019-02-15 09:23 | PDOC ---
CARDIO Progress Notes Date and Time Date of Service 02/15/2019 Time of Evaluation 0910 Subjective Subjective: No Chest Pain, No shortness of breath, No Palpitations, Other ( still having intermittent leg cramps) Vitals Vitals Vital Signs Date Time Temp Pulse Resp B/P (MAP) Pulse Ox O2 Delivery O2 Flow Rate FiO2 02/15/19 08:53 84 116/80 02/15/19 08:00 Room Air 2.0 02/15/19 07:00 97.8 16 95 97.8 Weight Weight [ ] Input and Output Intake and Output Intake and Output 02/15/19 07:00 Intake Total 321.14 ml Output Total 2100 ml Balance -1778.86 ml Intake Oral 100 ml IV Total 221.14 ml Output Urine Total 2100 ml Laboratory Labs Laboratory Tests Test 02/14/19 11:00 Troponin I Quantitative < 0.017 ng/mL (0.000-0.055) Microbiology Micro Microbiology 02/14/19 Blood Culture - Preliminary, Resulted NO GROWTH AFTER 1 DAY Physical Exam HEENT: Neck Supple W Full Motion Chest: Symmetric LUNGS: Clear to Auscultation Heart: S1S2, irregularly irregular (AFIB) Abdomen: Soft N/T Extremities: No Edema Neurology: alert, oriented, follow commands Assessment Assessment 1. AFIB RVR: converted to SR with dig yesterday and now back in AFIB but rate controlled 2. Dyspnea with mild acute diastolic CHF: induced by above. Compensated 3. Abnormal head CT: ?Subdural hygroma, neurology w/u ongoing 4. Possible dementia 5. Atypical CP: more Epigastric pain with nausea. Better. 6. ETOH use: 1 pint of vodka every 3 days. Previous longstanding chronic ETOH per daughter promoting multiple PUD in the past and advised no anticoagulation at that time. Recommendations 1. With the above information, and high risk for falls, ASA would probably more ideal with risk outweighing the benefits in addition to noted subdural hygroma 2. Change cardizem drip to PO, still awaiting TTE and if LV dysfunction is noted then may just convert to BB. 3. Awaiting TTE and may consider for antiarrhythmic agent. 4. Outpt stress test will arrange. Discussed with staff ambulate today and note HR response JORGE CESAR APRN Feb 15, 2019 09:23
[2019-02-15 10:38] LABS: BASO % 0 % (0-3); EOS % 0 % (0-3); HEMATOCRIT 47.6 % (39.0-53.0); HEMOGLOBIN 15.6 g/dL (13.0-17.5); LYMPH # 0.9 x10^3/uL (1.0-4.8); LYMPH % 9 % (24-48); MEAN CORPUSCULAR HEMOGLOBIN 30 pg (25-35); MEAN CORPUSCULAR HGB CONC 33 g/dL (31-37); MEAN CORPUSCULAR VOLUME 91 fL (79-100); MONO # 0.7 x10^3/uL (0.0-1.1); MONO % 7 % (0-9); NEUT # 8.8 x10^3uL (1.8-7.7); NEUT % 84 % (31-73); PLATELET COUNT 267 x10^3/uL (140-400); RED BLOOD COUNT 5.21 x10^6/uL (4.30-5.70); RED CELL DISTRIBUTION WIDTH 14.2 % (11.5-14.5); WHITE BLOOD COUNT 10.5 x10^3/uL (4.0-11.0)
--- NOTE | 2019-02-15 10:50 | PDOC ---
PROGRESS NOTES Chief Complaint Chief Complaint New Onset A. fib flutter in RVR - CHADS 3 Possible beginning dementia or versus moderate cognitive impairment Generalized weakness-lives in a senior apartment in [place] urinary retention b12 deficiency PLAN: follow recommendations from cardiology Dementia work up, TSH, esr normal, b12 mildly decreased will supplement Will need an echo Stat potassium now - leg cramps - 1.5 L Output after lasix PT OT bladder scan protocol FULL CODE History of Present Illness History of Present Illness Patient with improved rate control. Currently unclear if the patient has had subdural hematomas there is report of a hygroma in having frequent falls which puts him at increased risk for adverse outcomes if he indeed starts and anticoagulation. Patient will need physical therapy evaluation to determine disposition given his debilitated state currently. No acute events reported overnight no chest pain or palpitations reported no dyspnea has been reported no loss of consciousness no new neurological deficits evident Vitals Vitals Vital Signs Date Time Temp Pulse Resp B/P (MAP) Pulse Ox O2 Delivery O2 Flow Rate FiO2 02/15/19 08:53 84 116/80 02/15/19 08:00 Room Air 2.0 02/15/19 07:00 97.8 16 95 97.8 Physical Exam General: Alert, Oriented X3, Cooperative, No acute distress Heart: Other (AFIB) Lungs: Clear Abdomen: Soft Extremities: No cyanosis, Other (2+ bilateral LE pitting edema) Skin: No breakdown, No significant lesion Labs LABS Laboratory Tests Test 02/14/19 11:00 Troponin I Quantitative < 0.017 ng/mL (0.000-0.055) Review of Systems Review of Systems Pertinent as per history of present illness otherwise 14 point review of system is negative Assessment and Plan Assessmemt and Plan Problems Medical Problems: (1) Chest pain Status: Acute (2) Congestive heart failure Status: Acute (3) Urinary retention Status: Acute Comment Review of Relevant I have reviewed the following items linda (where applicable) has been applied. Labs Laboratory Tests Test 02/14/19 03:25 02/14/19 03:37 02/14/19 05:00 02/14/19 08:20 White Blood Count 6.8 x10^3/uL (4.0-11.0) Red Blood Count 4.53 x10^6/uL (4.30-5.70) Hemoglobin 13.5 g/dL (13.0-17.5) Hematocrit 40.9 % (39.0-53.0) Mean Corpuscular Volume 90 fL (79-100) Mean Corpuscular Hemoglobin 30 pg (25-35) Mean Corpuscular Hemoglobin Concent 33 g/dL (31-37) Red Cell Distribution Width 14.5 % (11.5-14.5) Platelet Count 254 x10^3/uL (140-400) Neutrophils (%) (Auto) 61 % (31-73) Lymphocytes (%) (Auto) 25 % (24-48) Monocytes (%) (Auto) 11 % (0-9) Eosinophils (%) (Auto) 3 % (0-3) Basophils (%) (Auto) 1 % (0-3) Neutrophils # (Auto) 4.1 x10^3uL (1.8-7.7) Lymphocytes # (Auto) 1.7 x10^3/uL (1.0-4.8) Monocytes # (Auto) 0.8 x10^3/uL (0.0-1.1) Eosinophils # (Auto) 0.2 x10^3/uL (0.0-0.7) Basophils # (Auto) 0.1 x10^3/uL (0.0-0.2) Sodium Level 136 mmol/L (136-145) 137 mmol/L (136-145) Potassium Level 3.6 mmol/L (3.5-5.1) 3.8 mmol/L (3.5-5.1) Chloride Level 99 mmol/L (98-107) 100 mmol/L (98-107) Carbon Dioxide Level 22 mmol/L (21-32) 21 mmol/L (21-32) Anion Gap 15 (6-14) 16 (6-14) Blood Urea Nitrogen 7 mg/dL (8-26) 7 mg/dL (8-26) Creatinine 0.9 mg/dL (0.7-1.3) 0.7 mg/dL (0.7-1.3) Estimated GFR (Cockcroft-Gault) 82.5 110.2 BUN/Creatinine Ratio 8 (6-20) Glucose Level 114 mg/dL (70-99) 117 mg/dL (70-99) Calcium Level 8.1 mg/dL (8.5-10.1) 8.6 mg/dL (8.5-10.1) Total Bilirubin 0.5 mg/dL (0.2-1.0) Aspartate Amino Transf (AST/SGOT) 20 U/L (15-37) Alanine Aminotransferase (ALT/SGPT) 17 U/L (16-63) Alkaline Phosphatase 87 U/L (46-116) Troponin I Quantitative 0.022 ng/mL (0.000-0.055) < 0.017 ng/mL (0.000-0.055) GT-Kax-L-Type Natriuretic Peptide 1512 pg/mL (0-124) Total Protein 6.8 g/dL (6.4-8.2) Albumin 3.2 g/dL (3.4-5.0) Albumin/Globulin Ratio 0.9 (1.0-1.7) Triglycerides Level 55 mg/dL (0-150) Cholesterol Level 112 mg/dL (0-200) LDL Cholesterol, Calculated 55 mg/dL (0-100) VLDL Cholesterol, Calculated 11 mg/dL (0-40) Non-HDL Cholesterol Calculated 66 mg/dL (0-129) HDL Cholesterol 46 mg/dL (40-60) Cholesterol/HDL Ratio 2.4 Lipase 274 U/L (73-393) Thyroid Stimulating Hormone (TSH) 2.800 uIU/mL (0.358-3.74) O2 Saturation 95 % (92-99) Arterial Blood pH 7.41 (7.35-7.45) Arterial Blood pCO2 at Patient Temp 34 mmHg (35-46) Arterial Blood pO2 at Patient Temp 84 mmHg (65-108) Arterial Blood HCO3 21 mmol/L (21-28) Arterial Blood Base Excess -3 mmol/L (-3-3) FiO2 28 Urine Collection Type Unknown Urine Color Yellow Urine Clarity Clear Urine pH 5.5 Urine Specific [place] <=1.005 Urine Protein Negative mg/dL (NEG-TRACE) Urine Glucose (UA) Negative mg/dL (NEG) Urine Ketones (Stick) Negative mg/dL (NEG) Urine Blood Negative (NEG) Urine Nitrite Negative (NEG) Urine Bilirubin Negative (NEG) Urine Urobilinogen Dipstick 0.2 mg/dL (0.2 mg/dL) Urine Leukocyte Esterase Negative (NEG) Urine RBC Occ /HPF (0-2) Urine WBC Occ /HPF (0-4) Urine Squamous Epithelial Cells Occ /LPF Urine Bacteria 0 /HPF (0-FEW) Erythrocyte Sedimentation Rate 5 (0-15) Magnesium Level 2.0 mg/dL (1.8-2.4) Vitamin B12 Level 390 pg/mL (247-911) Test 02/14/19 11:00 Troponin I Quantitative < 0.017 ng/mL (0.000-0.055) Laboratory Tests Test 02/14/19 11:00 Troponin I Quantitative < 0.017 ng/mL (0.000-0.055) Microbiology 02/14/19 Blood Culture - Preliminary, Resulted NO GROWTH AFTER 1 DAY Medications Current Medications Ondansetron HCl (Zofran) 4 mg PRN Q8HRS PRN IV NAUSEA/VOMITING; Start 02/14/19 at 05:30; Stop 02/14/19 at 07:58; Status DC Fentanyl Citrate (Fentanyl 2ml Vial) 50 mcg PRN Q4HRS PRN IV PAIN Last administered on 02/14/19at 08:13; Start 02/14/19 at 05:30; Stop 02/15/19 at 05:29; Status DC Acetaminophen (Tylenol) 650 mg PRN Q4HRS PRN PO FEVER Last administered on at 17:22; Start 02/14/19 at 05:30; Stop 02/15/19 at 05:29; Status DC Nitroglycerin (Nitrostat) 0.4 mg PRN Q5MIN PRN SL CHEST PAIN; Start 02/14/19 at 05:30; Stop 02/15/19 at 05:29; Status DC Furosemide (Lasix) 40 mg 1X ONCE IVP Last administered on 02/14/19at 05:41; Start 02/14/19 at 05:30; Stop 02/14/19 at 05:31; Status DC Ondansetron HCl (Zofran) 4 mg PRN Q6HRS PRN IV NAUSEA/VOMITING; Start 02/14/19 at 08:00 Potassium Chloride (Klor-Con) 40 meq 1X ONCE PO Last administered on 02/14/19at 08:40; Start 02/14/19 at 08:15; Stop 02/14/19 at 08:16; Status DC Diltiazem HCl (Cardizem Iv Push) 10 mg 1X ONCE IVP Last administered on 08:52; Start 02/14/19 at 09:00; Stop 02/14/19 at 09:01; Status DC Enoxaparin Sodium (Lovenox 60mg Syringe) 60 mg 1X ONCE SQ ; Start 02/14/19 at 09 :30; Stop 02/14/19 at 09:31; Status DC Diltiazem HCl 125 mg/Dextrose 125 ml @ 5 mls/hr CONT PRN IV SEE I/O RECORD Last administered on 02/15/19 03:44; Start 02/14/19 at 09:30; Stop 02/15/19 at 07:40; Status DC Digoxin (Lanoxin) 500 mcg 1X ONCE IV Last administered on 02/14/19 09:45; Start 02/14/19 at 09:45; Stop 02/14/19 at 09:46; Status DC Hydralazine HCl (Apresoline Inj) 10 mg PRN Q4HRS PRN IVP ELEVATED BP, SEE COMMENTS Last administered on 02/14/19at 13:17; Start 02/14/19 at 13:15 Cyclobenzaprine HCl (Flexeril) 5 mg PRN Q12HR PRN PO MUSCLE SPASMS Last administered on 02/14/19 20:58; Start 02/14/19 at 20:45 Aspirin (Ecotrin) 81 mg DAILYWBKFT PO Last administered on 02/15/19 08:53; Start 02/15/19 at 08:00 Diltiazem HCl (Cardizem 24hr Cd) 120 mg DAILY PO Last administered on at 08:53; Start 02/15/19 at 09:00; Stop 02/15/19 at 09:03; Status DC Diltiazem HCl (Cardizem 24hr Cd) 180 mg DAILY PO ; Start 02/16/19 at 09:00 Active Scripts Active Prednisone 20 Mg Tablet 40 Mg PO DAILY 5 Days Vitals/I & O Vital Sign - Last 24 Hours 02/14/19 02/14/19 02/14/19 02/14/19 11:00 11:30 12:30 13:00 Pulse 80 67 74 72 Resp 16 18 B/P (MAP) 160/94 (116) 150/90 (110) 163/88 (113) 175/106 (129) Pulse Ox 94 O2 Delivery Room Air 02/14/19 02/14/19 02/14/19 02/14/19 13:17 13:30 14:00 14:30 Temp 97.5 97.5 Pulse 74 80 84 76 Resp 18 B/P (MAP) 175/106 162/84 (110) 140/72 (94) 141/73 (95) Pulse Ox 94 O2 Delivery Room Air 02/14/19 02/14/19 02/14/19 02/14/19 15:00 15:30 16:00 16:30 Pulse 76 86 80 80 B/P (MAP) 154/82 (106) 172/98 (122) 153/91 (111) 153/91 (111) 02/14/19 02/14/19 02/14/19 02/14/19 17:00 17:30 18:00 18:30 Pulse 74 142 92 112 B/P (MAP) 152/92 (112) 173/103 (126) 159/91 (113) 140/72 (94) 02/14/19 02/14/19 02/14/19 02/14/19 19:26 19:30 20:00 20:00 Temp 97.9 97.9 Pulse 113 76 110 Resp 20 B/P (MAP) 126/74 (91) 124/71 (88) 112/68 (83) Pulse Ox 95 O2 Delivery Room Air Room Air 02/14/19 02/14/19 02/14/19 02/14/19 20:30 21:00 21:30 22:00 Pulse 84 77 7 74 B/P (MAP) 124/70 (88) 106/63 (77) 116/77 (90) 123/80 (94) 02/15/19 02/15/19 02/15/19 02/15/19 00:00 01:00 02:00 03:00 Pulse 76 76 68 67 B/P (MAP) 131/65 (87) 113/70 (84) 114/71 (85) 111/76 (88) 02/15/19 02/15/19 02/15/19 02/15/19 03:26 04:00 05:00 06:00 Temp 97.9 97.9 Pulse 70 66 66 84 Resp 18 B/P (MAP) 122/69 (86) 111/76 (88) 120/75 (90) 117/73 (88) Pulse Ox 94 O2 Delivery Room Air 02/15/19 02/15/19 02/15/19 07:00 08:00 08:53 Temp 97.8 97.8 Pulse 73 84 Resp 16 B/P (MAP) 116/80 (92) 116/80 Pulse Ox 95 O2 Delivery Room Air Room Air O2 Flow Rate 2.0 Intake and Output 02/14/19 02/14/19 02/15/19 15:00 23:00 07:00 Intake Total 37.14 ml 284 ml Output Total 1150 ml 650 ml 300 ml Balance -1150 ml -612.86 ml -16 ml SHANTELLE SANDS MD Feb 15, 2019 10:49
[2019-02-15 10:56] LABS: CALCIUM 8.7 mg/dL (8.5-10.1)
--- NOTE | 2019-02-15 14:23 | PDOC ---
PROGRESS NOTES Assessment Assessment Metabolic encephalopathy. Right frontal and parietal hygroma, chronic fluid collection. Anticoagulant issues from Cardiology. Chest pain. SOB. AFib with RVR, new findings? CHF. Dysarthria, chronic? Forgetfulness, cognitive impairment. HTN. HLD. Alcohol use/abuse. Peripheral neuropathy in LE likely. RECOMMENDATIONS/PLAN: Patient was unable to provide Hx whether he had SDH in the past. If he had, no anticoagulant is recommended at this time. Need information form his family. Treat medical and cardiac diseases. EEG on 02/14/19: Within normal. HISTORY OF PRESENT ILLNESS This is a an 83-y-old male patient with above medical diseases was admitted due to complains of SOB, chest pain and decreasing mental status. He lives in [place] and daughter is wanting him to move to for closer supervision. He has been noted with forgetfulness and noted with SOB. He has HTN but does not take any medication. Neurology was requested for consultation due to his abnormal HCT and possible anticoagulant issues. PAST MEDICAL HISTORY Cardiovascular: No pertinent hx Pulmonary: Asthma GI: Diverticulosis, GERD, Other (hiatal hernia) Heme/Onc: Anemia NOS PAST SURGICAL HISTORY Appendectomy, Cholecystectomy, Other (12/2017 [facility]/HH with adhesion lysis, ex lap , bowel resection and hernia reduction, G tube placement; RUL lobectomy). FAMILY HISTORY Unknown ALLERGIES Coded Allergies: iodine (Verified Allergy, Severe, Anaphylaxis, 12/26/17) morphine (Verified Allergy, Intermediate, 12/26/17) SOCIAL HISTORY Smoke: No ALCOHOL: 1 pint of Vodka q3 days for many years. Drugs: None Lives: Alone MEDICATIONS: Refer to [facility] REVIEW OF SYSTEMS: Constitutional: No cachexia. Head: No traumatic brain or head injury. Skin: No edema, or rash. Ear: No infection. Eyes: No vision loss or color blindness. Nose: No bleeding or purulent discharges. Hearing: Hearing decrease. Neck: No injury. Cardiac: Chest pain, HTN, HLD. Pulmonary: SOB. GI: No GI ulcer, GI bleeding. Urinary/genital: UTI. Endocrinologic: No cousin face, craniofacial dysmorphism, polydactyly. Skeletomuscular: Generalized weakness. Neurological: see HP. Psychiatric: Alcohol use/abuse. Otherwise, not [id number] review of systems. PHYSICAL EXAMINATION: General appearance is in no acute distress. HEENT: Normocephalic and nontraumatic. Eyes, nose, ears, and throat are unremarkable. Neck is supple. No lymphadenopathy. No crepitus. Cardiovascular: S1, S2, seemed irregular rate and rhythm. Pulmonary: Clear to auscultation bilaterally. Abdomen: Bowel sounds are positive. Extremities: No rash, lesions, or edema. No restriction of range of motion NEUROLOGICAL EXAMINATION: Awake. Partially oriented to time, knew place and person. PERRL. EOMI. CN: no focal findings. Muscle tone: within normal. Muscle strength: 4+ DTR: 2 Plantar reflex: Neutral response bilaterally Gait: not examined in chair. Sensory exam: no abnormal findings. No cerebellar signs elicited. F-T-N test fine. Objective Objective Vital Signs Date Time Temp Pulse Resp B/P (MAP) Pulse Ox O2 Delivery O2 Flow Rate FiO2 02/15/19 11:00 98.1 79 16 106/67 (80) 96 Room Air 98.1 02/15/19 08:00 2.0 Intake and Output 02/15/19 06:59 Intake Total 321.14 ml Output Total 2100 ml Balance -1778.86 ml Intake Oral 100 ml IV Total 221.14 ml Output Urine Total 2100 ml Vitals Signs Vitals VS - Last 72 Hours, by Label Date Time Temp Pulse Resp B/P (MAP) Pulse Ox O2 Delivery O2 Flow Rate FiO2 02/15/19 11:00 98.1 79 16 106/67 (80) 96 Room Air 98.1 02/15/19 08:53 84 116/80 02/15/19 08:00 Room Air 2.0 02/15/19 07:00 97.8 73 16 116/80 (92) 95 Room Air 97.8 02/15/19 06:00 84 117/73 (88) 02/15/19 05:00 66 120/75 (90) 02/15/19 04:00 66 111/76 (88) 02/15/19 03:26 97.9 70 18 122/69 (86) 94 Room Air 97.9 02/15/19 03:00 67 111/76 (88) 02/15/19 02:00 68 114/71 (85) 02/15/19 01:00 76 113/70 (84) 02/15/19 00:00 76 131/65 (87) 02/14/19 22:00 74 123/80 (94) 02/14/19 21:30 7 116/77 (90) 02/14/19 21:00 77 106/63 (77) 02/14/19 20:30 84 124/70 (88) 02/14/19 20:00 Room Air 02/14/19 20:00 110 112/68 (83) 02/14/19 19:30 76 124/71 (88) 02/14/19 19:26 97.9 113 20 126/74 (91) 95 Room Air 97.9 02/14/19 18:30 112 140/72 (94) 02/14/19 18:00 92 159/91 (113) 02/14/19 17:30 142 173/103 (126) 02/14/19 17:00 74 152/92 (112) 02/14/19 16:30 80 153/91 (111) 02/14/19 16:00 80 153/91 (111) 02/14/19 15:30 86 172/98 (122) 02/14/19 15:00 76 154/82 (106) 02/14/19 14:30 76 141/73 (95) 02/14/19 14:00 97.5 84 18 140/72 (94) 94 Room Air 97.5 02/14/19 13:30 80 162/84 (110) 02/14/19 13:17 74 175/106 02/14/19 13:00 72 175/106 (129) 02/14/19 12:30 74 163/88 (113) 02/14/19 11:30 67 18 150/90 (110) 02/14/19 11:00 80 16 160/94 (116) 94 Room Air 02/14/19 09:45 123 154/95 02/14/19 08:52 140 148/108 02/14/19 08:00 Room Air 2.0 Laboratory Laboratory Laboratory Tests Test 02/15/19 10:05 White Blood Count 10.5 x10^3/uL (4.0-11.0) Red Blood Count 5.21 x10^6/uL (4.30-5.70) Hemoglobin 15.6 g/dL (13.0-17.5) Hematocrit 47.6 % (39.0-53.0) Mean Corpuscular Volume 91 fL (79-100) Mean Corpuscular Hemoglobin 30 pg (25-35) Mean Corpuscular Hemoglobin Concent 33 g/dL (31-37) Red Cell Distribution Width 14.2 % (11.5-14.5) Platelet Count 267 x10^3/uL (140-400) Neutrophils (%) (Auto) 84 % (31-73) Lymphocytes (%) (Auto) 9 % (24-48) Monocytes (%) (Auto) 7 % (0-9) Eosinophils (%) (Auto) 0 % (0-3) Basophils (%) (Auto) 0 % (0-3) Neutrophils # (Auto) 8.8 x10^3uL (1.8-7.7) Lymphocytes # (Auto) 0.9 x10^3/uL (1.0-4.8) Monocytes # (Auto) 0.7 x10^3/uL (0.0-1.1) Eosinophils # (Auto) 0.0 x10^3/uL (0.0-0.7) Basophils # (Auto) 0.0 x10^3/uL (0.0-0.2) Sodium Level 136 mmol/L (136-145) Potassium Level 4.0 mmol/L (3.5-5.1) Chloride Level 99 mmol/L (98-107) Carbon Dioxide Level 28 mmol/L (21-32) Anion Gap 9 (6-14) Blood Urea Nitrogen 11 mg/dL (8-26) Creatinine 1.0 mg/dL (0.7-1.3) Estimated GFR (Cockcroft-Gault) 73.0 Glucose Level 168 mg/dL (70-99) Calcium Level 8.7 mg/dL (8.5-10.1) Microbiology 02/14/19 Blood Culture - Preliminary, Resulted NO GROWTH AFTER 1 DAY Medication Medications Current Medications Aspirin (Ecotrin) 81 mg DAILYWBKFT PO Last administered on 02/15/19at 08:53; Start 02/15/19 at 08:00 Cyclobenzaprine HCl (Flexeril) 5 mg PRN Q12HR PRN PO MUSCLE SPASMS Last administered on 02/14/19at 20:58; Start 02/14/19 at 20:45 Diltiazem HCl (Cardizem 24hr Cd) 120 mg DAILY PO Last administered on at 08:53; Start 02/15/19 at 09:00; Stop 02/15/19 at 09:03; Status DC Diltiazem HCl (Cardizem 24hr Cd) 180 mg DAILY PO ; Start 02/16/19 at 09:00 Comment Review of Relevant I have reviewed the following items linda (where applicable) has been applied. JENNY ARMSTRONG MD Feb 15, 2019 14:23
[2019-02-15] MEDS: CYCLOBENZAPRINE 10 MG TABLET. PO PRN (21:25)
[2019-02-16 03:10] VITALS: BP 120/78
[2019-02-16 06:36] VITALS: BP 148/95
[2019-02-16] MEDS: CYCLOBENZAPRINE 10 MG TABLET. PO PRN (08:13)
[2019-02-16] MEDS: ASPIRIN ENTERIC COATED 81 MG TABLET.DR. PO SCH (08:13)
--- NOTE | 2019-02-16 10:01 | PDOC ---
CARDIO Progress Notes Date and Time Date of Service 02/16/2019 Time of Evaluation 0930 Subjective Subjective: No Chest Pain, No shortness of breath, No Palpitations Vitals Vitals Vital Signs Date Time Temp Pulse Resp B/P (MAP) Pulse Ox O2 Delivery O2 Flow Rate FiO2 02/16/19 08:13 88 148/95 02/16/19 06:36 98.0 18 99 Room Air 98.0 02/15/19 08:00 2.0 Weight Weight [ ] Input and Output Intake and Output Intake and Output 02/16/19 06:59 Intake Total 1768.78 ml Output Total 1425 ml Balance 343.78 ml Intake Oral 1720 ml IV Total 48.78 ml Output Urine Total 1425 ml # Voids 1 Laboratory Labs Laboratory Tests Test 02/15/19 10:05 White Blood Count 10.5 x10^3/uL (4.0-11.0) Red Blood Count 5.21 x10^6/uL (4.30-5.70) Hemoglobin 15.6 g/dL (13.0-17.5) Hematocrit 47.6 % (39.0-53.0) Mean Corpuscular Volume 91 fL (79-100) Mean Corpuscular Hemoglobin 30 pg (25-35) Mean Corpuscular Hemoglobin Concent 33 g/dL (31-37) Red Cell Distribution Width 14.2 % (11.5-14.5) Platelet Count 267 x10^3/uL (140-400) Neutrophils (%) (Auto) 84 % (31-73) Lymphocytes (%) (Auto) 9 % (24-48) Monocytes (%) (Auto) 7 % (0-9) Eosinophils (%) (Auto) 0 % (0-3) Basophils (%) (Auto) 0 % (0-3) Neutrophils # (Auto) 8.8 x10^3uL (1.8-7.7) Lymphocytes # (Auto) 0.9 x10^3/uL (1.0-4.8) Monocytes # (Auto) 0.7 x10^3/uL (0.0-1.1) Eosinophils # (Auto) 0.0 x10^3/uL (0.0-0.7) Basophils # (Auto) 0.0 x10^3/uL (0.0-0.2) Sodium Level 136 mmol/L (136-145) Potassium Level 4.0 mmol/L (3.5-5.1) Chloride Level 99 mmol/L (98-107) Carbon Dioxide Level 28 mmol/L (21-32) Anion Gap 9 (6-14) Blood Urea Nitrogen 11 mg/dL (8-26) Creatinine 1.0 mg/dL (0.7-1.3) Estimated GFR (Cockcroft-Gault) 73.0 Glucose Level 168 mg/dL (70-99) Calcium Level 8.7 mg/dL (8.5-10.1) Microbiology Micro Microbiology 02/14/19 Blood Culture - Preliminary, Resulted NO GROWTH AFTER 2 DAYS Physical Exam HEENT: Neck Supple W Full Motion Chest: Symmetric LUNGS: Clear to Auscultation Heart: S1S2, irregularly irregular (AFIB) Abdomen: Soft N/T Extremities: No Edema Neurology: alert, oriented, follow commands Assessment Assessment 1. AFIB RVR: converted to SR the other day. Remains in AFIB HR 90-110. EF and WM nml 2. Dyspnea with mild acute diastolic CHF: Compensated 3. Abnormal head CT: Subdural hygroma, neurology following 4. Possible dementia 5. Atypical CP: possibly GI 6. ETOH use: 1 pint of vodka every 3 days. Previous longstanding chronic ETOH per daughter promoting multiple PUD in the past and advised no anticoagulation at that time. Recommendations 1. Poor candidate for termination clerk OAC with above reasons with high fall risk. ASA for stroke prevention 2. Continue cardizem, Dig x1 250 mcg. 3. Unclear for placement will probably need SNU initally then HH, will have OT/ PT see him 4. daughter wants him to go back to [place] and if so he needs cardiology referral for outpt stress test and further treatment otherwise follow up in office in 4 weeks with [facility] 5. amiodarone is a consideration but not a usp OAC candidate. JORGE CESAR APRN Feb 16, 2019 10:01
[2019-02-16] MEDS ORDERED: DIGOXIN IV 500 MCG/2 ML AMPUL. IV ONE (10:15)
[2019-02-16 11:01] VITALS: BP 113/73
--- NOTE | 2019-02-16 13:14 | NUR ---
SS following up with discharge planning. PT recommended custodial unit. SS met with pt to discuss discharge planning and custodial unit. Pt reported that he lives with his daughter. He reported that he was at [facility] about ten years ago and if needed would go there for custodial unit. Pt requested SS send referral to [facility] and contact his daughter and son to verify that they wanted him to go to custodial unit. SS phoned and faxed referral to [facility], ; fax [phone]. SS attempted to contact pt's daughter and received a message that her number was not reachable at this time. SS contacted pt's son and discussed. Pt's son unsure if custodial unit would be necessary. He reported that he would discuss with his sister and they would notify SS of there decision.
--- NOTE | 2019-02-16 14:28 | NUR ---
SS following up with discharge planning. Pt's daughter agreeable to [facility] at discharge. Pt is accepted at [facility]. SS will await discharge orders for jail unit and will proceed accordingly. Pt's RN notified.
[2019-02-16 15:00] VITALS: BP 118/71
--- NOTE | 2019-02-16 16:49 | PDOC ---
PROGRESS NOTES Assessment Assessment Metabolic encephalopathy. Right frontal and parietal hygroma, chronic fluid collection. Anticoagulant issues from Cardiology. Chest pain. SOB. AFib with RVR, new findings? CHF. Dysarthria, chronic? Forgetfulness, cognitive impairment. HTN. HLD. Alcohol use/abuse. Peripheral neuropathy in LE likely. RECOMMENDATIONS/PLAN: Patient was unable to provide Hx whether he had SDH in the past. If he had, no anticoagulant is recommended at this time. Patient is unable to provide accurate information. Treat medical and cardiac diseases. EEG on 02/14/19: Within normal. HISTORY OF PRESENT ILLNESS This is a an 83-y-old male patient with above medical diseases was admitted due to complains of SOB, chest pain and decreasing mental status. He lives in [place] and daughter is wanting him to move to for closer supervision. He has been noted with forgetfulness and noted with SOB. He has HTN but does not take any medication. Neurology was requested for consultation due to his abnormal HCT and possible anticoagulant issues. PAST MEDICAL HISTORY Cardiovascular: No pertinent hx Pulmonary: Asthma GI: Diverticulosis, GERD, Other (hiatal hernia) Heme/Onc: Anemia NOS PAST SURGICAL HISTORY Appendectomy, Cholecystectomy, Other (12/2017 S[facility] with adhesion lysis, ex lap , bowel resection and hernia reduction, G tube placement; RUL lobectomy). FAMILY HISTORY Unknown ALLERGIES Coded Allergies: iodine (Verified Allergy, Severe, Anaphylaxis, 12/26/17) morphine (Verified Allergy, Intermediate, 12/26/17) SOCIAL HISTORY Smoke: No ALCOHOL: 1 pint of Vodka q3 days for many years. Drugs: None Lives: Alone MEDICATIONS: Refer to [facility] REVIEW OF SYSTEMS: Constitutional: No cachexia. Head: No traumatic brain or head injury. Skin: No edema, or rash. Ear: No infection. Eyes: No vision loss or color blindness. Nose: No bleeding or purulent discharges. Hearing: Hearing decrease. Neck: No injury. Cardiac: Chest pain, HTN, HLD. Pulmonary: SOB. GI: No GI ulcer, GI bleeding. Urinary/genital: UTI. Endocrinologic: No cousin face, craniofacial dysmorphism, polydactyly. Skeletomuscular: Generalized weakness. Neurological: see HP. Psychiatric: Alcohol use/abuse. Otherwise, not [id number] review of systems. PHYSICAL EXAMINATION: General appearance is in no acute distress. HEENT: Normocephalic and nontraumatic. Eyes, nose, ears, and throat are unremarkable. Neck is supple. No lymphadenopathy. No crepitus. Cardiovascular: S1, S2, seemed irregular rate and rhythm. Pulmonary: Clear to auscultation bilaterally. Abdomen: Bowel sounds are positive. Extremities: No rash, lesions, or edema. No restriction of range of motion NEUROLOGICAL EXAMINATION: Awake. Partially oriented to time, knew place and person. PERRL. EOMI. CN: no focal findings. Muscle tone: within normal. Muscle strength: 4+ DTR: 2 Plantar reflex: Neutral response bilaterally Gait: Walks with a walker. Sensory exam: no abnormal findings. No cerebellar signs elicited. F-T-N test fine. Objective Objective Vital Signs Date Time Temp Pulse Resp B/P (MAP) Pulse Ox O2 Delivery O2 Flow Rate FiO2 02/16/19 15:00 97.3 83 16 118/71 (87) 95 Room Air 97.3 02/16/19 11:01 2.0 Intake and Output 02/16/19 07:00 Intake Total 1768.78 ml Output Total 1425 ml Balance 343.78 ml Intake Oral 1720 ml IV Total 48.78 ml Output Urine Total 1425 ml # Voids 1 Vitals Signs Vitals VS - Last 72 Hours, by Label Date Time Temp Pulse Resp B/P (MAP) Pulse Ox O2 Delivery O2 Flow Rate FiO2 02/16/19 15:00 97.3 83 16 118/71 (87) 95 Room Air 97.3 02/16/19 11:01 98.0 83 113/73 (86) 99 Room Air 2.0 98.0 02/16/19 10:29 110 02/16/19 08:13 88 148/95 02/16/19 08:00 Room Air 02/16/19 06:36 98.0 88 18 148/95 (112) 99 Room Air 98.0 02/16/19 03:10 97.6 77 17 120/78 (92) 94 Room Air 97.6 02/15/19 23:17 98.1 81 18 112/75 (87) 98 Room Air 98.1 02/15/19 20:00 Room Air 02/15/19 19:10 98.1 92 18 123/66 (85) 95 Room Air 98.1 02/15/19 15:02 97.9 76 20 114/66 (82) 95 Room Air 97.9 02/15/19 11:00 98.1 79 16 106/67 (80) 96 Room Air 98.1 02/15/19 08:53 84 116/80 02/15/19 08:00 Room Air 2.0 02/15/19 07:00 97.8 73 16 116/80 (92) 95 Room Air 97.8 Laboratory Laboratory Microbiology 02/14/19 Blood Culture - Preliminary, Resulted NO GROWTH AFTER 2 DAYS Medication Medications Current Medications Amiodarone HCl (Cordarone) 200 mg DAILY PO ; Start 02/16/19 at 16:15 Digoxin (Lanoxin) 250 mcg 1X ONCE IV Last administered on 02/16/19at 10:29; Start 02/16/19 at 10:15; Stop 02/16/19 at 10:16; Status DC Diltiazem HCl (Cardizem 24hr Cd) 180 mg DAILY PO Last administered on at 08:13; Start 02/16/19 at 09:00 Comment Review of Relevant I have reviewed the following items linda (where applicable) has been applied. JENNY ARMSTRONG MD Feb 16, 2019 16:49
[2019-02-16] MEDS: AMIODARONE HCL 200 MG TABLET. PO SCH (16:51)
[2019-02-16 19:41] VITALS: BP 125/71
--- NOTE | 2019-02-16 19:49 | PDOC ---
PROGRESS NOTES Chief Complaint Chief Complaint New Onset A. fib flutter in RVR - CHADS 3 Possible beginning dementia or versus moderate cognitive impairment Generalized weakness-lives in a senior apartment in [place] urinary retention b12 deficiency PLAN: follow recommendations from cardiology Dementia work up, TSH, esr normal, b12 mildly decreased will supplement Will need an echo Stat potassium now - leg cramps - 1.5 L Output after lasix PT OT bladder scan protocol FULL CODE History of Present Illness History of Present Illness Patient with improved rate control. Currently unclear if the patient has had subdural hematomas there is report of a hygroma in having frequent falls which puts him at increased risk for adverse outcomes if he indeed starts and anticoagulation. Patient will need physical therapy evaluation to determine disposition given his debilitated state currently. Patient lives here in and his daughter lives in [place]. Seems like he does have other children in the area that can help with his care. No acute events reported overnight no chest pain or palpitations reported no dyspnea has been reported no loss of consciousness no new neurological deficits evident Vitals Vitals Vital Signs Date Time Temp Pulse Resp B/P (MAP) Pulse Ox O2 Delivery O2 Flow Rate FiO2 02/16/19 19:41 98.0 86 18 125/71 (89) 94 Room Air 98.0 02/16/19 11:01 2.0 Physical Exam General: Alert, Oriented X3, Cooperative, No acute distress Heart: Other (AFIB) Lungs: Clear Abdomen: Soft Extremities: No cyanosis, Other (2+ bilateral LE pitting edema) Skin: No breakdown, No significant lesion Review of Systems Review of Systems pertinent as per hpi otherwise 10 point review of system negative. Assessment and Plan Assessmemt and Plan Problems Medical Problems: (1) Chest pain Status: Acute (2) Congestive heart failure Status: Acute (3) Urinary retention Status: Acute Comment Review of Relevant I have reviewed the following items linda (where applicable) has been applied. Labs Laboratory Tests Test 02/15/19 10:05 White Blood Count 10.5 x10^3/uL (4.0-11.0) Red Blood Count 5.21 x10^6/uL (4.30-5.70) Hemoglobin 15.6 g/dL (13.0-17.5) Hematocrit 47.6 % (39.0-53.0) Mean Corpuscular Volume 91 fL (79-100) Mean Corpuscular Hemoglobin 30 pg (25-35) Mean Corpuscular Hemoglobin Concent 33 g/dL (31-37) Red Cell Distribution Width 14.2 % (11.5-14.5) Platelet Count 267 x10^3/uL (140-400) Neutrophils (%) (Auto) 84 % (31-73) Lymphocytes (%) (Auto) 9 % (24-48) Monocytes (%) (Auto) 7 % (0-9) Eosinophils (%) (Auto) 0 % (0-3) Basophils (%) (Auto) 0 % (0-3) Neutrophils # (Auto) 8.8 x10^3uL (1.8-7.7) Lymphocytes # (Auto) 0.9 x10^3/uL (1.0-4.8) Monocytes # (Auto) 0.7 x10^3/uL (0.0-1.1) Eosinophils # (Auto) 0.0 x10^3/uL (0.0-0.7) Basophils # (Auto) 0.0 x10^3/uL (0.0-0.2) Sodium Level 136 mmol/L (136-145) Potassium Level 4.0 mmol/L (3.5-5.1) Chloride Level 99 mmol/L (98-107) Carbon Dioxide Level 28 mmol/L (21-32) Anion Gap 9 (6-14) Blood Urea Nitrogen 11 mg/dL (8-26) Creatinine 1.0 mg/dL (0.7-1.3) Estimated GFR (Cockcroft-Gault) 73.0 Glucose Level 168 mg/dL (70-99) Calcium Level 8.7 mg/dL (8.5-10.1) Microbiology 02/14/19 Blood Culture - Preliminary, Resulted NO GROWTH AFTER 2 DAYS Medications Current Medications Ondansetron HCl (Zofran) 4 mg PRN Q8HRS PRN IV NAUSEA/VOMITING; Start 02/14/19 at 05:30; Stop 02/14/19 at 07:58; Status DC Fentanyl Citrate (Fentanyl 2ml Vial) 50 mcg PRN Q4HRS PRN IV PAIN Last administered on 02/14/19at 08:13; Start 02/14/19 at 05:30; Stop 02/15/19 at 05:29; Status DC Acetaminophen (Tylenol) 650 mg PRN Q4HRS PRN PO FEVER Last administered on at 17:22; Start 02/14/19 at 05:30; Stop 02/15/19 at 05:29; Status DC Nitroglycerin (Nitrostat) 0.4 mg PRN Q5MIN PRN SL CHEST PAIN; Start 02/14/19 at 05:30; Stop 02/15/19 at 05:29; Status DC Furosemide (Lasix) 40 mg 1X ONCE IVP Last administered on 02/14/19at 05:41; Start 02/14/19 at 05:30; Stop 02/14/19 at 05:31; Status DC Ondansetron HCl (Zofran) 4 mg PRN Q6HRS PRN IV NAUSEA/VOMITING; Start 02/14/19 at 08:00 Potassium Chloride (Klor-Con) 40 meq 1X ONCE PO Last administered on 02/14/19at 08:40; Start 02/14/19 at 08:15; Stop 02/14/19 at 08:16; Status DC Diltiazem HCl (Cardizem Iv Push) 10 mg 1X ONCE IVP Last administered on at 08:52; Start 02/14/19 at 09:00; Stop 02/14/19 at 09:01; Status DC Enoxaparin Sodium (Lovenox 60mg Syringe) 60 mg 1X ONCE SQ ; Start 02/14/19 at 09 :30; Stop 02/14/19 at 09:31; Status DC Diltiazem HCl 125 mg/Dextrose 125 ml @ 5 mls/hr CONT PRN IV SEE I/O RECORD Last administered on 02/15/19at 03:44; Start 02/14/19 at 09:30; Stop 02/15/19 at 07:40; Status DC Digoxin (Lanoxin) 500 mcg 1X ONCE IV Last administered on 02/14/19at 09:45; Start 02/14/19 at 09:45; Stop 02/14/19 at 09:46; Status DC Hydralazine HCl (Apresoline Inj) 10 mg PRN Q4HRS PRN IVP ELEVATED BP, SEE COMMENTS Last administered on 02/14/19at 13:17; Start 02/14/19 at 13:15 Cyclobenzaprine HCl (Flexeril) 5 mg PRN Q12HR PRN PO MUSCLE SPASMS Last administered on 02/16/19 08:13; Start 02/14/19 at 20:45 Aspirin (Ecotrin) 81 mg DAILYWBKFT PO Last administered on 02/16/19 08:13; Start 02/15/19 at 08:00 Diltiazem HCl (Cardizem 24hr Cd) 120 mg DAILY PO Last administered on 08:53; Start 02/15/19 at 09:00; Stop 02/15/19 at 09:03; Status DC Diltiazem HCl (Cardizem 24hr Cd) 180 mg DAILY PO Last administered on 08:13; Start 02/16/19 at 09:00 Digoxin (Lanoxin) 250 mcg 1X ONCE IV Last administered on 02/16/19 10:29; Start 02/16/19 at 10:15; Stop 02/16/19 at 10:16; Status DC Amiodarone HCl (Cordarone) 200 mg DAILY PO Last administered on 02/16/19 16:51 ; Start 02/16/19 at 16:15 Active Scripts Active Prednisone 20 Mg Tablet 40 Mg PO DAILY 5 Days Vitals/I & O Vital Sign - Last 24 Hours 02/15/19 02/15/19 02/16/19 02/16/19 20:00 23:17 03:10 06:36 Temp 98.1 97.6 98.0 98.1 97.6 98.0 Pulse 81 77 88 Resp 18 17 18 B/P (MAP) 112/75 (87) 120/78 (92) 148/95 (112) Pulse Ox 98 94 99 O2 Delivery Room Air Room Air Room Air Room Air 02/16/19 02/16/19 02/16/19 02/16/19 08:00 08:13 10:29 11:01 Temp 98.0 98.0 Pulse 88 110 83 B/P (MAP) 148/95 113/73 (86) Pulse Ox 99 O2 Delivery Room Air Room Air O2 Flow Rate 2.0 02/16/19 02/16/19 02/16/19 15:00 16:51 19:41 Temp 97.3 98.0 97.3 98.0 Pulse 83 83 86 Resp 16 18 B/P (MAP) 118/71 (87) 118/71 125/71 (89) Pulse Ox 95 94 O2 Delivery Room Air Room Air Intake and Output 02/15/19 02/15/19 02/16/19 15:00 23:00 07:00 Intake Total 528.78 ml 1080 ml 160 ml Output Total 200 ml 1225 ml Balance 328.78 ml -145 ml 160 ml SHANTELLE SANDS MD Feb 16, 2019 19:49
[2019-02-16 22:30] VITALS: BP 113/75
[2019-02-17 03:17] VITALS: BP 138/90
[2019-02-17 07:00] VITALS: BP 125/72
--- NOTE | 2019-02-17 08:37 | PDOC ---
PROGRESS NOTES Chief Complaint Chief Complaint New Onset A. fib flutter in RVR - CHADS 3 Possible beginning dementia or versus moderate cognitive impairment Generalized weakness-lives in a senior apartment in [place] urinary retention b12 deficiency PLAN: follow recommendations from cardiology Dementia work up, TSH, esr normal, b12 mildly decreased will supplement Will need an echo Stat potassium now - leg cramps - 1.5 L Output after lasix PT OT bladder scan protocol FULL CODE History of Present Illness History of Present Illness Mr Gonzalez is a 73yo M w/ PMHx MCI, weakness, urinary retention who was admitted with generalized weakness, found in new onset afib with RVR. Patient with improved rate control. Currently unclear if the patient has had subdural hematomas there is report of a hygroma in having frequent falls which puts him at increased risk for adverse outcomes if he indeed starts and anticoagulation. Patient will need physical therapy evaluation to determine disposition given his debilitated state currently. Patient lives here in and his daughter lives in [place]. Seems like he does have other children in the area that can help with his care. No acute events reported overnight no chest pain or palpitations reported no dyspnea has been reported no loss of consciousness no new neurological deficits evident. He was given diltiazem, rate controlled, with history of falls was given ASA only. Echo performed: The left ventricular systolic function is normal. The Ejection Fraction is 65-70%. There is normal LV segmental wall motion. Trace to mild mitral regurgitation. Trace tricuspid regurgitation. The PA pressure was estimated at 30 mmHg. There is no evidence of significant pericardial effusion. Vitals Vitals Vital Signs Date Time Temp Pulse Resp B/P (MAP) Pulse Ox O2 Delivery O2 Flow Rate FiO2 02/17/19 07:53 Room Air 02/17/19 07:00 98.4 60 18 125/72 (89) 94 98.4 02/16/19 19:45 2.0 Physical Exam General: Alert, Oriented X3, Cooperative, No acute distress Heart: Other (AFIB) Lungs: Clear Abdomen: Soft Extremities: No cyanosis, Other (2+ bilateral LE pitting edema) Skin: No breakdown, No significant lesion Assessment and Plan Assessmemt and Plan Problems Medical Problems: (1) Chest pain Status: Acute (2) Congestive heart failure Status: Acute (3) Urinary retention Status: Acute Comment Review of Relevant I have reviewed the following items linda (where applicable) has been applied. Labs Laboratory Tests Test 02/15/19 10:05 White Blood Count 10.5 x10^3/uL (4.0-11.0) Red Blood Count 5.21 x10^6/uL (4.30-5.70) Hemoglobin 15.6 g/dL (13.0-17.5) Hematocrit 47.6 % (39.0-53.0) Mean Corpuscular Volume 91 fL (79-100) Mean Corpuscular Hemoglobin 30 pg (25-35) Mean Corpuscular Hemoglobin Concent 33 g/dL (31-37) Red Cell Distribution Width 14.2 % (11.5-14.5) Platelet Count 267 x10^3/uL (140-400) Neutrophils (%) (Auto) 84 % (31-73) Lymphocytes (%) (Auto) 9 % (24-48) Monocytes (%) (Auto) 7 % (0-9) Eosinophils (%) (Auto) 0 % (0-3) Basophils (%) (Auto) 0 % (0-3) Neutrophils # (Auto) 8.8 x10^3uL (1.8-7.7) Lymphocytes # (Auto) 0.9 x10^3/uL (1.0-4.8) Monocytes # (Auto) 0.7 x10^3/uL (0.0-1.1) Eosinophils # (Auto) 0.0 x10^3/uL (0.0-0.7) Basophils # (Auto) 0.0 x10^3/uL (0.0-0.2) Sodium Level 136 mmol/L (136-145) Potassium Level 4.0 mmol/L (3.5-5.1) Chloride Level 99 mmol/L (98-107) Carbon Dioxide Level 28 mmol/L (21-32) Anion Gap 9 (6-14) Blood Urea Nitrogen 11 mg/dL (8-26) Creatinine 1.0 mg/dL (0.7-1.3) Estimated GFR (Cockcroft-Gault) 73.0 Glucose Level 168 mg/dL (70-99) Calcium Level 8.7 mg/dL (8.5-10.1) Microbiology 02/14/19 Blood Culture - Preliminary, Resulted NO GROWTH AFTER 3 DAYS Medications Current Medications Ondansetron HCl (Zofran) 4 mg PRN Q8HRS PRN IV NAUSEA/VOMITING; Start 02/14/19 at 05:30; Stop 02/14/19 at 07:58; Status DC Fentanyl Citrate (Fentanyl 2ml Vial) 50 mcg PRN Q4HRS PRN IV PAIN Last administered on 02/14/19at 08:13; Start 02/14/19 at 05:30; Stop 02/15/19 at 05:29; Status DC Acetaminophen (Tylenol) 650 mg PRN Q4HRS PRN PO FEVER Last administered on at 17:22; Start 02/14/19 at 05:30; Stop 02/15/19 at 05:29; Status DC Nitroglycerin (Nitrostat) 0.4 mg PRN Q5MIN PRN SL CHEST PAIN; Start 02/14/19 at 05:30; Stop 02/15/19 at 05:29; Status DC Furosemide (Lasix) 40 mg 1X ONCE IVP Last administered on 02/14/19at 05:41; Start 02/14/19 at 05:30; Stop 02/14/19 at 05:31; Status DC Ondansetron HCl (Zofran) 4 mg PRN Q6HRS PRN IV NAUSEA/VOMITING; Start 02/14/19 at 08:00 Potassium Chloride (Klor-Con) 40 meq 1X ONCE PO Last administered on 02/14/19at 08:40; Start 02/14/19 at 08:15; Stop 02/14/19 at 08:16; Status DC Diltiazem HCl (Cardizem Iv Push) 10 mg 1X ONCE IVP Last administered on at 08:52; Start 02/14/19 at 09:00; Stop 02/14/19 at 09:01; Status DC Enoxaparin Sodium (Lovenox 60mg Syringe) 60 mg 1X ONCE SQ ; Start 02/14/19 at 09 :30; Stop 02/14/19 at 09:31; Status DC Diltiazem HCl 125 mg/Dextrose 125 ml @ 5 mls/hr CONT PRN IV SEE I/O RECORD Last administered on 02/15/19at 03:44; Start 02/14/19 at 09:30; Stop 02/15/19 at 07:40; Status DC Digoxin (Lanoxin) 500 mcg 1X ONCE IV Last administered on 02/14/19 09:45; Start 02/14/19 at 09:45; Stop 02/14/19 at 09:46; Status DC Hydralazine HCl (Apresoline Inj) 10 mg PRN Q4HRS PRN IVP ELEVATED BP, SEE COMMENTS Last administered on 02/14/19 13:17; Start 02/14/19 at 13:15 Cyclobenzaprine HCl (Flexeril) 5 mg PRN Q12HR PRN PO MUSCLE SPASMS Last administered on 02/16/19 08:13; Start 02/14/19 at 20:45 Aspirin (Ecotrin) 81 mg DAILYWBKFT PO Last administered on 02/16/19 08:13; Start 02/15/19 at 08:00 Diltiazem HCl (Cardizem 24hr Cd) 120 mg DAILY PO Last administered on 08:53; Start 02/15/19 at 09:00; Stop 02/15/19 at 09:03; Status DC Diltiazem HCl (Cardizem 24hr Cd) 180 mg DAILY PO Last administered on 08:13; Start 02/16/19 at 09:00 Digoxin (Lanoxin) 250 mcg 1X ONCE IV Last administered on 02/16/19 10:29; Start 02/16/19 at 10:15; Stop 02/16/19 at 10:16; Status DC Amiodarone HCl (Cordarone) 200 mg DAILY PO Last administered on 02/16/19 16:51 ; Start 02/16/19 at 16:15 Active Scripts Active Prednisone 20 Mg Tablet 40 Mg PO DAILY 5 Days Vitals/I & O Vital Sign - Last 24 Hours 02/16/19 02/16/19 02/16/19 02/16/19 10:29 11:01 15:00 16:51 Temp 98.0 97.3 98.0 97.3 Pulse 110 83 83 83 Resp 16 B/P (MAP) 113/73 (86) 118/71 (87) 118/71 Pulse Ox 99 95 O2 Delivery Room Air Room Air O2 Flow Rate 2.0 02/16/19 02/16/19 02/16/19 02/17/19 19:41 19:45 22:30 03:17 Temp 98.0 97.8 97.5 98.0 97.8 97.5 Pulse 86 85 70 Resp 18 16 16 B/P (MAP) 125/71 (89) 113/75 (88) 138/90 (106) Pulse Ox 94 92 95 O2 Delivery Room Air Room Air Room Air Room Air O2 Flow Rate 2.0 02/17/19 02/17/19 07:00 07:53 Temp 98.4 98.4 Pulse 60 Resp 18 B/P (MAP) 125/72 (89) Pulse Ox 94 O2 Delivery Room Air Room Air Intake and Output 02/16/19 02/16/19 02/17/19 15:00 23:00 07:00 Intake Total 1100 ml 300 ml Output Total 200 ml 225 ml Balance 900 ml 75 ml MOLLY MCHUGH MD Feb 17, 2019 08:37
[2019-02-17] MEDS: ASPIRIN ENTERIC COATED 81 MG TABLET.DR. PO SCH (08:58)
[2019-02-17] MEDS: AMIODARONE HCL 200 MG TABLET. PO SCH (08:59)
--- NOTE | 2019-02-17 09:21 | PDOC ---
CARDIO Progress Notes Date and Time Date of Service 02/17/2019 Time of Evaluation 0910 Subjective Subjective: No Chest Pain, No shortness of breath, No Palpitations Vitals Vitals Vital Signs Date Time Temp Pulse Resp B/P (MAP) Pulse Ox O2 Delivery O2 Flow Rate FiO2 02/17/19 08:59 60 125/72 02/17/19 07:53 Room Air 02/17/19 07:00 98.4 18 94 98.4 02/16/19 19:45 2.0 Weight Weight [ ] Input and Output Intake and Output Intake and Output 02/17/19 07:00 Intake Total 1400 ml Output Total 425 ml Balance 975 ml Intake Oral 1400 ml Output Urine Total 425 ml # Voids 5 Microbiology Micro Microbiology 02/14/19 Blood Culture - Preliminary, Resulted NO GROWTH AFTER 3 DAYS Physical Exam HEENT: Neck Supple W Full Motion Chest: Symmetric LUNGS: Clear to Auscultation Heart: S1S2, RRR (SR) Abdomen: Soft N/T Extremities: No Edema Neurology: alert, oriented, follow commands Assessment Assessment 1. AFIB RVR: Back in SR with amiodarone. 2. Dyspnea with mild acute diastolic CHF: Compensated 3. Abnormal head CT: Subdural hygroma, neurology following 4. Possible dementia 5. Atypical CP: possibly GI 6. ETOH use: 1 pint of vodka every 3 days. Previous longstanding chronic ETOH per daughter promoting multiple PUD in the past and advised no anticoagulation at that time. Recommendations 1. Poor candidate for usp OAC with above reasons with high fall risk. ASA for stroke prevention 2. Continue cardizem, amiodarone 3. May transfer to SNU. 4. daughter wants him to go back to [place] and if so he needs cardiology referral for outpt stress test otherwise f/u in office as noted 5. Follow up with Dr. Yousif on March 20 at 1:30 PM JORGE CESAR APRN Feb 17, 2019 09:21
[2019-02-17] MEDS ORDERED: DILT180C29 PO (10:19)
[2019-02-17] MEDS ORDERED: AMIO200T4 PO (10:19)
[2019-02-17] MEDS ORDERED: ASPI-612 PO (10:19)
[2019-02-17] MEDS ORDERED: ONDA4TAB7 PO (10:19)
[2019-02-17] MEDS ORDERED: DOCU-109 PO (10:19)
--- NOTE | 2019-02-17 10:46 | SNU/HH DC ---
DISCHARGE ORDERS DISCHARGE INFORMATION: DISCHARGE DATE: Feb 17, 2019 FINAL DIAGNOSIS Problems Medical Problems: (1) Chest pain Status: Acute (2) Congestive heart failure Status: Acute (3) Urinary retention Status: Acute CONDITION ON DISCHARGE: Stable CODE STATUS: Code Status: Full SHELTER: SNF STAY <30 DAYS: Yes POST DISCHARGE ORDERS: ACTIVITY ORDERS: Activity as tolerated WEIGHT BEARING STATUS: Full weight bearing DIET AFTER DISCHARGE: Cardiac CHECKS AFTER DISCHARGE: CHECKS AFTER DISCHARGE: Check blood press - daily, Weigh Yourself Daily FOLLOW-UP: PHYSICIAN FOLLOW-UP: Dr. Benoit - Cardiology - 2 weeks TREATMENT/EQUIPMENT ORDERS: Physical Therapy For: Evalulation/Treatment Occupational Therapy For: Evaluation/Treatment DISCHARGE MEDICATIONS: Home Meds Active Scripts Ondansetron Hcl (ZOFRAN) 4 Mg Tablet, 1 TAB PO PRN Q6-8HRS PRN for NAUSEA for 30 Days, TAB Prov:MOLLY MCHUGH MD 02/17/19 Docusate Sodium (COLACE) 100 Mg Capsule, 1 CAP PO BID for Constipation for 30 Days, #60 CAP 2 Refills Prov:MOLLY MCHUGH MD 02/17/19 Aspirin (ASPIRIN EC) 81 Mg Tablet.dr, 81 MG PO DAILYWBKFT for Afib for 30 Days, #30 TAB.SR 11 Refills Prov:MOLLY MCHUGH MD 02/17/19 Diltiazem Hcl (DILTIAZEM 24HR CD) 180 Mg Cap.er.24h, 180 MG PO DAILY for Afib for 30 Days, #30 CAP.SR 2 Refills Prov:MOLLY MCHUGH MD 02/17/19 Amiodarone Hcl (AMIODARONE HCL) 200 Mg Tablet, 200 MG PO DAILY for Afib for 30 Days, #30 TAB 2 Refills Prov:MOLLY MCHUGH MD 02/17/19 Discontinued Scripts Prednisone (PREDNISONE) 20 Mg Tablet, 40 MG PO DAILY for LEG PAIN, PINCHED NERVE for 5 Days, #10 TAB Prov:WENDIE DORMAN MD 02/12/18 MOLLY MCHUGH MD Feb 17, 2019 10:46
--- NOTE | 2019-02-17 10:49 | PDOC3 ---
Discharge Summary Visit Information Date of Admission: Feb 14, 2019 Date of Discharge: Feb 17, 2019 Admitting Diagnosis: Chest pain, Afib with RVR Final Diagnosis Problems Medical Problems: (1) Chest pain Status: Acute (2) Congestive heart failure Status: Acute (3) Urinary retention Status: Acute Brief Hospital Course Allergies Allergies Coded Allergies Type Severity Reaction Last Updated Verified iodine Allergy Severe Anaphylaxis 12/26/17 Yes morphine Allergy Intermediate 12/26/17 Yes Vital Signs Vital Signs Date Time Temp Pulse Resp B/P (MAP) Pulse Ox O2 Delivery O2 Flow Rate FiO2 02/17/19 08:59 60 125/72 02/17/19 07:53 Room Air 02/17/19 07:00 98.4 18 94 98.4 02/16/19 19:45 2.0 Brief Hospital Course Mr Gonzalez is a 73yo M w/ PMHx MCI, weakness, urinary retention who was admitted with generalized weakness, found in new onset afib with RVR. Patient with improved rate control. Currently unclear if the patient has had subdural hematomas there is report of a hygroma in having frequent falls which puts him at increased risk for adverse outcomes if he indeed starts and anticoagulation. Patient will need physical therapy evaluation to determine disposition given his debilitated state currently. Patient lives here in and his daughter lives in [place]. Seems like he does have other children in the area that can help with his care. No acute events reported overnight no chest pain or palpitations reported no dyspnea has been reported no loss of consciousness no new neurological deficits evident. He was given diltiazem, rate controlled, with history of falls was given ASA only. He was very weak and PT/OT recommended SNF. Seen by neurology for this weakness, urology for urinary retention and cardiology for his Afib. Greater than 30 minutes spent on discharge to SNF. Echo performed: The left ventricular systolic function is normal. The Ejection Fraction is 65-70%. There is normal LV segmental wall motion. Trace to mild mitral regurgitation. Trace tricuspid regurgitation. The PA pressure was estimated at 30 mmHg. There is no evidence of significant pericardial effusion. New Onset A. fib flutter in RVR - CHADS 3 Possible beginning dementia or versus moderate cognitive impairment Generalized weakness-lives in a senior apartment in [place] urinary retention b12 deficiency PLAN: follow recommendations from cardiology Dementia work up, TSH, esr normal, b12 mildly decreased will supplement Echo WNL Stat potassium now - leg cramps - 1.5 L Output after lasix PT OT bladder scan protocol FULL CODE Discharge Information Condition at Discharge: Improved Follow Up: Weeks (2) Disposition/Orders: D/C to Another Facility ([facility]) Scheduled Amiodarone Hcl (Amiodarone Hcl) 200 Mg Tablet, 200 MG PO DAILY for Afib for 30 Days, #30 Ref 2 Prescribed by: MOLLY MCHUGH MD on 02/17/19 1019 Aspirin (Aspirin Ec) 81 Mg Tablet.dr, 81 MG PO DAILYWBKFT for Afib for 30 Days, #30 Ref 11 Prescribed by: MOLLY MCHUGH MD on 02/17/19 1019 Diltiazem Hcl (Diltiazem 24HR Cd) 180 Mg Cap.er.24h, 180 MG PO DAILY for Afib for 30 Days, #30 Ref 2 Prescribed by: MOLLY MCHUGH MD on 02/17/19 1019 Docusate Sodium (Colace) 100 Mg Capsule, 1 CAP PO BID for Constipation for 30 Days, #60 Ref 2 Prescribed by: MOLLY MCHUGH MD on 02/17/19 1019 Scheduled PRN Ondansetron Hcl (Zofran) 4 Mg Tablet, 1 TAB PO PRN Q6-8HRS PRN for NAUSEA for 30 Days Prescribed by: MOLLY MCHUGH MD on 02/17/19 1019 Discontinued Medications Prednisone (Prednisone) 20 Mg Tablet, 40 MG PO DAILY for LEG PAIN, PINCHED NERVE for 5 Days, #10 Prescribed by: WENDIE DORMAN MD on 02/12/18 1413 Last Action: Reviewed on 02/14/19 1748 by MOLLY LUIS MD Feb 17, 2019 10:49
[2019-02-17 11:00] VITALS: BP 140/82
--- NOTE | 2019-02-17 11:15 | NUR ---
SS following up with discharge planning. Discharge orders received for [facility], ; fax [phone]. SS phoned and faxed discharge orders to [facility]. Pt will discharge today and go to [facility] between 1400 and 1430 via [facility]. Pt, pt's son, and pt's RN notified.
--- NOTE | 2019-02-17 15:34 | PDOC ---
PROGRESS NOTES Assessment Assessment Metabolic encephalopathy. Right frontal and parietal hygroma, chronic fluid collection. Anticoagulant issues from Cardiology. Chest pain. SOB. AFib with RVR, new findings? CHF. Dysarthria, chronic? Forgetfulness, cognitive impairment. HTN. HLD. Alcohol use/abuse. Peripheral neuropathy in LE likely. RECOMMENDATIONS/PLAN: Patient was unable to provide Hx whether he had SDH in the past. If he had, no anticoagulant is recommended at this time. Patient is unable to provide accurate information. Treat medical and cardiac diseases. FU with PCP. EEG on 02/14/19: Within normal. HISTORY OF PRESENT ILLNESS This is a an 83-y-old male patient with above medical diseases was admitted due to complains of SOB, chest pain and decreasing mental status. He lives in [place] and daughter is wanting him to move to for closer supervision. He has been noted with forgetfulness and noted with SOB. He has HTN but does not take any medication. Neurology was requested for consultation due to his abnormal HCT and possible anticoagulant issues. PAST MEDICAL HISTORY Cardiovascular: No pertinent hx Pulmonary: Asthma GI: Diverticulosis, GERD, Other (hiatal hernia) Heme/Onc: Anemia NOS PAST SURGICAL HISTORY Appendectomy, Cholecystectomy, Other (12/2017 SBO/HH with adhesion lysis, ex lap , bowel resection and hernia reduction, G tube placement; RUL lobectomy). FAMILY HISTORY Unknown ALLERGIES Coded Allergies: iodine (Verified Allergy, Severe, Anaphylaxis, 12/26/17) morphine (Verified Allergy, Intermediate, 12/26/17) SOCIAL HISTORY Smoke: No ALCOHOL: 1 pint of Vodka q3 days for many years. Drugs: None Lives: Alone MEDICATIONS: Refer to [facility] REVIEW OF SYSTEMS: Constitutional: No cachexia. Head: No traumatic brain or head injury. Skin: No edema, or rash. Ear: No infection. Eyes: No vision loss or color blindness. Nose: No bleeding or purulent discharges. Hearing: Hearing decrease. Neck: No injury. Cardiac: Chest pain, HTN, HLD. Pulmonary: SOB. GI: No GI ulcer, GI bleeding. Urinary/genital: UTI. Endocrinologic: No cousin face, craniofacial dysmorphism, polydactyly. Skeletomuscular: Generalized weakness. Neurological: see HP. Psychiatric: Alcohol use/abuse. Otherwise, not [id number] review of systems. PHYSICAL EXAMINATION: General appearance is in no acute distress. HEENT: Normocephalic and nontraumatic. Eyes, nose, ears, and throat are unremarkable. Neck is supple. No lymphadenopathy. No crepitus. Cardiovascular: S1, S2, seemed irregular rate and rhythm. Pulmonary: Clear to auscultation bilaterally. Abdomen: Bowel sounds are positive. Extremities: No rash, lesions, or edema. No restriction of range of motion NEUROLOGICAL EXAMINATION: Awake. Partially oriented to time, knew place and person. PERRL. EOMI. CN: no focal findings. Muscle tone: within normal. Muscle strength: 4+ DTR: 2 Plantar reflex: Neutral response bilaterally Gait: Walks with a walker. Sensory exam: no abnormal findings. No cerebellar signs elicited. F-T-N test fine. Objective Objective Vital Signs Date Time Temp Pulse Resp B/P (MAP) Pulse Ox O2 Delivery O2 Flow Rate FiO2 02/17/19 11:00 98.2 72 18 140/82 (101) 98 Room Air 98.2 02/16/19 19:45 2.0 Intake and Output 02/17/19 07:00 Intake Total 1400 ml Output Total 425 ml Balance 975 ml Intake Oral 1400 ml Output Urine Total 425 ml # Voids 5 Vitals Signs Vitals VS - Last 72 Hours, by Label Date Time Temp Pulse Resp B/P (MAP) Pulse Ox O2 Delivery O2 Flow Rate FiO2 02/17/19 11:00 98.2 72 18 140/82 (101) 98 Room Air 98.2 02/17/19 08:59 60 125/72 02/17/19 08:58 60 125/72 02/17/19 07:53 Room Air 02/17/19 07:00 98.4 60 18 125/72 (89) 94 Room Air 98.4 02/17/19 03:17 97.5 70 16 138/90 (106) 95 Room Air 97.5 02/16/19 22:30 97.8 85 16 113/75 (88) 92 Room Air 97.8 02/16/19 19:45 Room Air 2.0 02/16/19 19:41 98.0 86 18 125/71 (89) 94 Room Air 98.0 02/16/19 16:51 83 118/71 02/16/19 15:00 97.3 83 16 118/71 (87) 95 Room Air 97.3 02/16/19 11:01 98.0 83 113/73 (86) 99 Room Air 2.0 98.0 02/16/19 10:29 110 02/16/19 08:13 88 148/95 02/16/19 08:00 Room Air Laboratory Laboratory Microbiology 02/14/19 Blood Culture - Preliminary, Resulted NO GROWTH AFTER 3 DAYS Medication Medications Current Medications Amiodarone HCl (Cordarone) 200 mg DAILY PO Last administered on 02/17/19at 08:59 ; Start 02/16/19 at 16:15 Comment Review of Relevant I have reviewed the following items linda (where applicable) has been applied. JENNY ARMSTRONG MD Feb 17, 2019 15:34
== END 2019-02-17 14:30 | DRG 291 ==
LOC: ER 03:05 → 2 SOUTH 05:13
PROVIDERS: ADMIT Internal Medicine; ATTEND Internal Medicine
DX: I11.0 Hypertensive heart disease with heart failure (principal); G93.41 Metabolic encephalopathy; I50.31 Acute diastolic (congestive) heart failure; I48.92 Unspecified atrial flutter; G96.0 Cerebrospinal fluid leak; E53.8 Deficiency of other specified B group vitamins; E78.00 Pure hypercholesterolemia, unspecified; E78.5 Hyperlipidemia, unspecified; F03.90 Unspecified dementia, unspecified severity, without behavioral disturbance, psychotic disturbance, mood disturbance, and anxiety; G62.9 Polyneuropathy, unspecified; R07.89 Other chest pain; K57.90 Diverticulosis of intestine, part unspecified, without perforation or abscess without bleeding; I48.0 Paroxysmal atrial fibrillation; J45.909 Unspecified asthma, uncomplicated; K21.9 Gastro-esophageal reflux disease without esophagitis; K57.30 Diverticulosis of large intestine without perforation or abscess without bleeding; Z87.11 Personal history of peptic ulcer disease; Z90.49 Acquired absence of other specified parts of digestive tract; Z91.81 History of falling
CPT/HCPCS: 36415; 36600; 70450; 71045; 74176; 80048; 80053; 80061; 81001; 82607; 82805; 83690; 83735; 83880; 84443; 84484; 85025; 85651; 87040; 93005; 93306; 95816; 96374; J0360; J1160; J1940; J3010; J3490; 97110; 97116; 97535; 99285-25